=== PATIENT | female | born 2000 | race Caucasian/White ===

== ENCOUNTER 2020-06-08 02:47 | Outpatient (CLI) | payer MEDICAID, SELFPAY ==
[2020-06-08 14:08] LABS: Abs Immature Grans 0.03 10^3/uL (0.0-0.06); Absolute Basophil Count 0.07 10^3/uL (0.0-0.2); Absolute Eosinophil Count 0.11 10^3/uL (0.0-0.7); Absolute Lymphocyte Count 1.93 10^3/uL (1.2-3.4); Absolute Monocyte Count 0.71 10^3/uL (0.1-0.8); Absolute Neutrophil Count 7.84 10^3/uL (1.2-6.7); Basophils % 0.7; HCT 38.1 % (36.0-46.0); HGB 13.1 g/dL (11.2-15.7); Immature Grans % 0.3; Lymphocytes % 18.1; MCH 29.4 pg (27.0-33.0); MCHC 34.4 % (32.0-36.0); MCV 85.6 fL (80-95); MPV 10.1 fL (8.0-11.0); Monocytes % 6.6; Neutrophils % 73.3; Nucleated RBC 0 %; Platelet Count 321 10^3/uL (130-400); RBC 4.45 10^6/uL (3.93-5.22); RDW 11.6 % (11.7-14.6); RDW-SD 35.5 fL; WBC 10.69 10^3/uL (4.4-10.8)
[2020-06-08 14:59] LABS: TSH (W/Ref FT4) 0.89 uIU/mL (0.52-4.13)
[2020-06-09 09:00] LABS: Hepatitis B Surface Ag Negative (Negative)
[2020-06-09 09:36] LABS: HIV-1/2 Ag & Ab Screen Negative (Negative)
[2020-06-09 09:51] LABS: Hepatitis C Ab w Rflx HCV PCR Negative (Negative)
[2020-06-09 11:17] LABS: Varicella IgG Antibody Positive (See Note)
[2020-06-09 11:20] LABS: Rubella IgG Ab (UVM) Negative (See Note)
[2020-06-10 11:35] LABS: Syphilis Total Ab w/Reflex Nonreactive (Nonreactive)
== END 2020-06-08 02:48 | disposition home or self-care (01) ==
LOC: LBO 02:47
PROVIDERS: Visit Provider Advanced Practice Midwife
DX: Z34.91 Encounter for supervision of normal pregnancy, unspecified, first trimester (principal); Z11.4 Encounter for screening for human immunodeficiency virus [HIV]; Z11.59 Encounter for screening for other viral diseases; Z01.84 Encounter for antibody response examination; E07.89 Other specified disorders of thyroid
CPT/HCPCS: 36415; 86787; 86803; 86850; 86900; 86901; 87340; 87389; 84443; 85025; 86762; 86780

== ENCOUNTER 2020-06-08 16:56 | Outpatient (REF) | payer MEDICAID, SELFPAY ==
[2020-06-08 18:43] LABS: *AMPHETAMINES SCREEN URINE Negative (Negative); *BARBITURATES SCREEN URINE Negative (Negative); *BENZODIAZEPINES SCREEN URINE Negative (Negative); Cannabinoids THC Negative (Negative); Cocaine Screen,Urine Negative (Negative); METHADONE URINE SCREEN Negative (Negative); OPIATES URINE SCREEN Negative (Negative)
[2020-06-08 18:50] LABS: Tricyclic Antidepressants Negative (Negative)
[2020-06-12 15:48] LABS: Chlamydia Result Negative (Negative); GC Result Negative (Negative)
[2020-06-15 10:10] LABS: Buprenorphine Negative ng/mL (Cutoff: 5.0); Norbuprenorphine Negative ng/mL (Cutoff: 2.5)
== END 2020-06-08 16:57 | disposition home or self-care (01) ==
LOC: NCHCN 16:56
PROVIDERS: Visit Provider Advanced Practice Midwife
DX: Z34.91 Encounter for supervision of normal pregnancy, unspecified, first trimester (principal); Z11.3 Encounter for screening for infections with a predominantly sexual mode of transmission
CPT/HCPCS: 80307; 87491; 87591; 87086

== ENCOUNTER 2020-07-19 02:54 | Outpatient (CLI) | payer MEDICAID, SELFPAY ==
--- NOTE | 2020-07-19 08:15 | DI.US_ITS ---
EXAM: US OB 2-3 TRIMESTER CLINICAL HISTORY: 18 wk anatomy survey,Z34.90. TECHNIQUE: Transabdominal obstetrical ultrasound was performed. COMPARISON: No exams were available for comparison FINDINGS: There is a single viable intrauterine gestation with cardiac activity identified-155 bpm. Amniotic fluid: There is a normal amount of amniotic fluid. Placental location: The placenta is fundal grade 0,with no evidence of placenta previa. ANATOMY: A 3 vessel umbilical cord is seen. A four-chamber cardiac view was obtained. Right and left ventricular outflow tracts were imaged. There are no obvious abnormalities of the spinal column evident. There is no obvious abnormal ity of the anterior abdominal wall. stomach and urinary bladder are identified and there is no evidence of hydronephrosis. No abnormalities of the upper lip region are identified. No evidence of choroid plexus cysts i n the brain. Dating parameters place this at approximately 18 weeks and 4 days gestational age. BPD measures 18 weeks and 6 days HC measures 18 weeks and 6 days AC measures 18 weeks and 2 days FL measures 18 weeks and 3 days Estimated weight is 237 gm-0 pounds, 8 ounces Fetus is at the 51st percentile on the Hadlock scale. IMPRESSION:: Single viable intrauterine gestation which is approximately 18 weeks and 4 days gestati onal age, implying an MOOKIE of December 16, 2020. There are no obvious anomalies evident on today's study. The placenta is fundal with no evidence of placenta previa. There is a normal amount of amniotic fluid. DATA REPOSITORY:
== END 2020-07-19 03:14 ==
PROVIDERS: Visit Provider Advanced Practice Midwife
DX: Z34.92 Encounter for supervision of normal pregnancy, unspecified, second trimester (principal); Z3A.18 18 weeks gestation of pregnancy
CPT/HCPCS: 76805

== ENCOUNTER 2020-09-21 04:21 | Outpatient (CLI) | payer MEDICAID, SELFPAY ==
[2020-09-21 15:15] LABS: Glucose,1 Hr (Glucola) 112 mg/dL (80-140)
== END 2020-09-21 04:22 | disposition home or self-care (01) ==
LOC: LBO 04:21
PROVIDERS: Visit Provider Obstetrics & Gynecology
DX: O36.0130 Maternal care for anti-D [Rh] antibodies, third trimester, not applicable or unspecified (principal); Z3A.28 28 weeks gestation of pregnancy
CPT/HCPCS: 36415; 82950; 86850; 90384

== ENCOUNTER 2020-11-23 16:16 | Outpatient (REF) | payer MEDICAID, SELFPAY ==
[2020-11-23 19:40] LABS: *AMPHETAMINES SCREEN URINE Negative (Negative); *BARBITURATES SCREEN URINE Negative (Negative); *BENZODIAZEPINES SCREEN URINE Negative (Negative); Cannabinoids THC Negative (Negative); Cocaine Screen,Urine Negative (Negative); METHADONE URINE SCREEN Negative (Negative); OPIATES URINE SCREEN Negative (Negative)
[2020-11-23 19:43] LABS: Tricyclic Antidepressants Negative (Negative)
[2020-11-30 10:30] LABS: Buprenorphine Negative ng/mL (Cutoff: 5.0); Norbuprenorphine Negative ng/mL (Cutoff: 2.5)
== END 2020-11-23 16:17 | disposition home or self-care (01) ==
LOC: LBN 16:16
PROVIDERS: Visit Provider Obstetrics & Gynecology
DX: Z34.93 Encounter for supervision of normal pregnancy, unspecified, third trimester (principal); Z36.85 Encounter for antenatal screening for Streptococcus B; Z3A.36 36 weeks gestation of pregnancy
CPT/HCPCS: 80307; 87081

== ENCOUNTER 2020-12-18 10:52 | Outpatient (CLI) | payer MEDICAID, SELFPAY ==
[2020-12-18 13:13] VITALS: BP 124/66; PULSE 73; TEMP 36.5
--- NOTE | 2020-12-20 11:59 | W.OBNST ---
Date of service: 12/20/20 Time of Service: 12:00 NST Evaluation Reason for NST Reasons for Nonstress Test: POSTDATES Gestational Age Gestational Age in Weeks and Days: 40 Weeks and 0Days Test and Monitor Explained Test/Monitor Explained: Test Explained, Monitor Explained and Patient Verbalized Understanding Vital Signs Blood Pressure: 124/66 Pulse: 73 Temperature: 97.7 F Urine Results Urine Protein: Negative Urine Ketones: Negative Urine Glucose: Negative Urine Blood: Negative NST Information Date on Monitor: 12/18/20 Time on Monitor: 13:12 Date off Monitor: 12/18/20 Time off Monitor: 13:38 Total Time on Monitor: 26 NST Interventions: None NST Evaluation Patient States Movement: Present FHR Baseline: 140 Variability: Moderate 6-25 bpm Accelerations: 15x15 Decelerations: None NST Results: Reactive Note NST Note Note: reactive NST. NST Reviewed and Verified by: Leah Trevino
[2020-12-20 12:00] VITALS: BP 124/66; PULSE 73; TEMP 36.5
--- NOTE | 2020-12-20 13:17 | W.OBNST ---
Date of service: 12/20/20 Time of Service: 13:17 NST Evaluation Reason for NST Reasons for Nonstress Test: POSTDATES Gestational Age Gestational Age in Weeks and Days: 40 Weeks and 0Days Test and Monitor Explained Test/Monitor Explained: Test Explained, Monitor Explained and Patient Verbalized Understanding Vital Signs Blood Pressure: 124/66 Pulse: 73 Temperature: 97.7 F Urine Results Urine Protein: Negative Urine Ketones: Negative Urine Glucose: Negative Urine Blood: Negative NST Information Date on Monitor: 12/18/20 Time on Monitor: 13:12 Date off Monitor: 12/18/20 Time off Monitor: 13:38 Total Time on Monitor: 26 NST Interventions: None NST Evaluation Patient States Movement: Present FHR Baseline: 140 Variability: Moderate 6-25 bpm Accelerations: 15x15 Decelerations: None NST Results: Reactive Note NST Note Note: Category 1 NST. Reactive NST Reviewed and Verified by: Amena Rust
[2020-12-20 13:18] VITALS: BP 124/66; PULSE 73; TEMP 36.5
== END 2020-12-18 13:45 | disposition home or self-care (01) ==
LOC: BCD 10:58 → OBS 13:07
PROVIDERS: Visit Provider Obstetrics & Gynecology Gynecology
DX: O48.0 Post-term pregnancy (principal); Z3A.40 40 weeks gestation of pregnancy
CPT/HCPCS: 59025

== ENCOUNTER 2020-12-21 07:32 | Outpatient (CLI) | payer MEDICAID, SELFPAY ==
[2020-12-21 14:16] VITALS: BP 126/73; PULSE 80; TEMP 36.7
[2020-12-21 14:58] VITALS: BP 126/73; PULSE 80; TEMP 36.7
--- NOTE | 2020-12-21 14:58 | W.OBNST ---
Date of service: 12/21/20 Time of Service: 14:58 NST Evaluation Reason for NST Reasons for Nonstress Test: POSTDATES Gestational Age Gestational Age in Weeks and Days: 40 Weeks and 3Days Test and Monitor Explained Test/Monitor Explained: Test Explained, Monitor Explained and Patient Verbalized Understanding Vital Signs Blood Pressure: 126/73 Pulse: 80 Temperature: 98.1 F Urine Results Urine Protein: Positive Urine Ketones: Negative Urine Glucose: Negative Urine Blood: Negative NST Information Date on Monitor: 12/21/20 Time on Monitor: 14:16 Date off Monitor: 12/21/20 Time off Monitor: 14:44 Total Time on Monitor: 28 NST Interventions: None Contraction Frequency: none NST Evaluation Patient States Movement: Present FHR Baseline: 130 Variability: Moderate 6-25 bpm Accelerations: 15x15 Decelerations: None NST Results: Reactive Note NST Note Note: Reactive NST, category 1 strip. Cervix 2 cm 80% -2 posterior soft. Will have labor induction starting with cervical ripening on 12/22/2020. NST Reviewed and Verified by: Amena Rust
== END 2020-12-21 18:30 ==
LOC: BCD 07:33 → OBS 14:12
PROVIDERS: Visit Provider Obstetrics & Gynecology
DX: O48.0 Post-term pregnancy (principal); Z3A.40 40 weeks gestation of pregnancy
CPT/HCPCS: 59025

== ENCOUNTER 2020-12-22 19:09 | Inpatient (IN) | payer MEDICAID, SELFPAY ==
[2020-12-22 19:33] LABS: HCT 38.5 % (36.0-46.0); HGB 12.9 g/dL (11.2-15.7); MCH 29.2 pg (27.0-33.0); MCHC 33.5 % (32.0-36.0); MCV 87.1 fL (80-95); MPV 10.4 fL (8.0-11.0); Platelet Count 244 10^3/uL (130-400); RBC 4.42 10^6/uL (3.93-5.22); RDW 12.5 % (11.7-14.6); RDW-SD 40.1 fL; WBC 12.15 10^3/uL (4.4-10.8)
[2020-12-22] MEDS: miSOPROStol 50 MCG TAB 25 MCG PO (20:12)
[2020-12-22 20:14] LABS: Source Nasal/Nares
[2020-12-22 22:12] LABS: COVID-19 PCR Negative (Negative)
[2020-12-23] VITALS (15 sets, daily range): BP systolic 112–145; BP diastolic 49–78; PULSE 62–109; RESP 16–18; TEMP 36.5–36.9; O2SAT 98–99
[2020-12-23] MEDS: miSOPROStol 50 MCG TAB PO (00:54)
--- NOTE | 2020-12-23 09:33 | HPE_ITS ---
Date of service: 12/23/20 Time of Service: 09:34 Assessment and Plan Assessment and plan (1) Elective induction of labor planned: Start date: 12/23/20 Start time: 09:49 Status: Acute Assessment and plan: S/p 2 doses misoprostol. Will plan for IV access and to start pitocin. May consider Cook's catheter or AROM in the future. Discussed process with pt and . She hopes to avoid pain meds if possible. OB-HPI Labor/Delivery History of Present Illness Reason for Visit: Term Pregancy Induction of Labor for Post Dates Chief Complaint: Scheduled Induction of Labor Indication for Induction: Post D ate. MOOKIE Calculator Estimated Delivery Date Method Current WG Current Estimate 12/18/20 LMP (Certain) 40w 5d Other Estimates 12/18/20 Ultrasound #1 40w 5d History of Present Expected Delivery Route/Plan - care ater 24w FOB/ - Victor Hugo Pacheco (first child) Specific Issues/Plan 1. Rubella non immune, pt counseled, may accept pp vaccination 2. Declines genetic screening, declines AFP 3. Thyroid slightly enlarged on initial exam, TSH is nml 4. Rh neg, 09/21/20 RhoGam given. 5. US complete, placenta fundal 6. Ana Maria and her decline covid vaccine. 7. Does not want to know gender, if male will circ Review of Systems All systems reviewed & are unremarkable except as noted in HPI and below PFSH Medical History Rh negative state in antepartum period 09/21/20. Rhogam given. Family History Father Well adult Mother Well adult Maternal Grandfather Colon cancer Social History Smoking/Tobacco Use Status: Never Smoking risk assessment performed?: Yes Alcohol Intake: current Alcohol Intake frequency: a few times a month Alcohol type: wine Substance use type: does not use Household members: spouse and other Details: ChaceVictor Hugo. Number of Children: 0 Additional Social history: Pt plays organ, piano and clarinet. She and have known each other since childhood. Female Reproductive History Menstrual control method: other History History 1 Para 0 Hx # Term Pregnancies 0 Multiple births 0 Hx # Pregnancies 0 Ectopic pregnancies 0 AB induced 0 Hx Number of Living Children 0 AB spontaneous 0 Meds Allergies and Home Medications Allergies Allergy/AdvReac Type Severity Reaction Status Date / Time No Known Allergies Allergy Verified 12/07/20 13:34 Home Medications Medication Instructions Recorded Confirmed Type prenat.vits,martha,[id number] 1 tab PO DAILY tab 09/21/20 12/23/20 History Exam Physical Exam Vital signs: Temp Pulse Resp BP Pulse Ox 97.7 F 71 18 118/78 98 12/23/20 08:43 12/23/20 08:43 12/23/20 08:43 12/23/20 08:43 12/23/20 08:43 Detailed Labor and Delivery Exam Dilation: 3 Effacement (%): 80 station: -1 Cervix position: posterior Consistency: medium Gilmore Score: Cervical Points Exam 0 1 2 3 Dilation Closed 1-2cm 3-4 cm 5-6cm Effacement 0-30% 40-50% 60-70% 80% Consistency Firm Medium Soft Station -3 -2 -1,0 +1,+2 Position Posterior Mid Anterior GILMORE Score(Cervical Ripeness Score): 8 Amniotic Membrane Status: Intact HEENT Exam HEENT Exam: Normal Respiratory Exam Respiratory Exam: Normal Detailed Abdominal Exam Abdominal: Absent tenderness Comments: Gravid Detailed Extremities Exam Extremities: Absent edema Detailed Neurological Exam Neurological: Present alert, oriented X3, CN II-XII intact and normal speech Results Results Group Beta Strep: Negative Blood Type: A- Rubella Status: Nonimmune Varicella Immunity: Immune Abnormal Lab Findings: Abnormal Labs 12/22/20 19:25 WBC 12.15 H Risk Assessment Risk for Shoulder Dystocia Historical/Initial OB: NEGATIVE FOR: Pelvic Abnormality, Pre- BMI>30, Previous Shoulder Dystocia or Previous Macrosomia Date/Initial: KJ 11/23/20 Delivery Plan @ 36wks: Delivery Plan @ 40 wks: Risk for Pre-Eclampsia Yes, if one or more: NEGATIVE FOR: Hx Pre-E/Gest HTN, Chronic HTN, Multiple Gestation, Pre-gestational DM, Renal Disease, Systemic Lupus or APA Syndrome Yes, if 2 or more: POSITIVE FOR: Nulliparity; NEGATIVE FOR: Age>= 35 yrs, >10yr btwn pregnancies, BMI>30, ethinicty, Mother/Sister w/ Pre-E or Previous IUGR Risk for Post- Hemorrhage Initial: NEGATIVE FOR: Multiple Gestation, Previous PPH, Known Clotting Deficiency, Grand Multiparity or Anticoagulation Counseled re: Active Management: Yes Date/Initials: PAOLO 11/23/20 Risks Reviewed Risks Reviewed Upon Admission: Yes
[2020-12-23] MEDS: Normal Saline Flush 10 ML SYR IVP (09:55)
[2020-12-23] MEDS: Lactated Ringers 1,000 ML 125 ML IV ×2 (10:00→17:28)
[2020-12-23] MEDS: Oxytocin/Normal Saline 30 UNIT/500 ML BAG 4 UNITS IV (10:13)
[2020-12-23 10:23] LABS: HCT 38.8 % (36.0-46.0); HGB 12.8 g/dL (11.2-15.7); MPV 10.6 fL (8.0-11.0); Platelet Count 228 10^3/uL (130-400); RBC 4.41 10^6/uL (3.93-5.22); RDW 12.5 % (11.7-14.6); RDW-SD 39.9 fL; WBC 11.21 10^3/uL (4.4-10.8)
--- NOTE | 2020-12-23 15:31 | W.PM.OBNL1 ---
Date of service: 12/23/20 Time of Service: 15:31 Pelvic Exam Dilation: 5 Effacement (%): 90 station: +1 Cervix Position: mid Vaginal Exam Presentation: Cephalic Contractions Monitor Mode: External Contraction Frequency(min): q2-4 Intensity: Moderate Fetus A Monitor: Doppler Heart Rate Baseline: 145 Variability: Moderate (6-25 BPM) Categories: Category I FHR Rhythm: Regular Accelerations: Present Decelerations: Early Amniotic Membrane Status: Ruptured Assessment and Plan Assessment and plan (1) Elective induction of labor planned: Status: Acute Assessment and plan: P0@41wks for induction. Pit @12. Cat 1 FHR. Will decrease pit to 10 now. Continue to monitor. Pt coping well with pain. Objective Abnormal lab results 12/22/20 12/23/20 Range/Units 19:25 10:00 WBC 12.15 H 11.21 H (4.4-10.8) 10^3/uL Temp Pulse Resp BP Pulse Ox 97.9 F 73 16 117/66 99 12/23/20 14:27 12/23/20 14:27 12/23/20 12:34 12/23/20 14:27 12/23/20 12:34 Laboratory Results WBC 11.21 10^3/uL (4.4-10.8) H 12/23/20 10:00 RBC 4.41 10^6/uL (3.93-5.22) 12/23/20 10:00 Hgb 12.8 g/dL (11.2-15.7) 12/23/20 10:00 Hct 38.8 % (36.0-46.0) 12/23/20 10:00 MCV 88.0 fL (80-95) 12/23/20 10:00 MCH 29.0 pg (27.0-33.0) 12/23/20 10:00 MCHC 33.0 % (32.0-36.0) 12/23/20 10:00 RDW 12.5 % (11.7-14.6) 12/23/20 10:00 Plt Count 228 10^3/uL (130-400) 12/23/20 10:00 MPV 10.6 fL (8.0-11.0) 12/23/20 10:00 COVID-19 Source Nasal/Nares 12/22/20 19:56 SARS-CoV-2 (PCR) Negative (Negative) 12/22/20 19:56 Patient ABO/Rh A Negative 12/22/20 19:25 Antibody Screen NEGATIVE 12/22/20 19:25 Subjective Interval history since last seen: Feeling more uncomfortable. AROM @13:40 with clear fluid - continues to leak. Results Hemoglobin/Hematocrit: Hgb 12.8 g/dL (11.2-15.7) 12/23/20 10:00 Hct 38.8 % (36.0-46.0) 12/23/20 10:00 Abnormal Lab Findings: Abnormal Labs 12/22/20 12/23/20 19:25 10:00 WBC 12.15 H 11.21 H
--- NOTE | 2020-12-23 17:40 | W.PM.OBNL1 ---
Date of service: 12/23/20 Time of Service: 17:40 Pelvic Exam Dilation: 6 Effacement (%): 90 station: +1 Position: ITALIA Vaginal Exam Presentation: Vertex Contractions Monitor Mode: External Contraction Frequency(min): q2-3 Fetus A Monitor: External (US) Heart Rate Baseline: 130 Variability: Moderate (6-25 BPM) Categories: Category I Accelerations: 15 X 15 Decelerations: Early Assessment and Plan Assessment and plan (1) Elective induction of labor planned: Status: Acute Objective Abnormal lab results 12/22/20 12/23/20 Range/Units 19:25 10:00 WBC 12.15 H 11.21 H (4.4-10.8) 10^3/uL Temp Pulse Resp BP Pulse Ox 98.2 F 78 16 112/55 L 99 12/23/20 17:27 12/23/20 16:28 12/23/20 12:34 12/23/20 16:28 12/23/20 12:34 Laboratory Results WBC 11.21 10^3/uL (4.4-10.8) H 12/23/20 10:00 RBC 4.41 10^6/uL (3.93-5.22) 12/23/20 10:00 Hgb 12.8 g/dL (11.2-15.7) 12/23/20 10:00 Hct 38.8 % (36.0-46.0) 12/23/20 10:00 MCV 88.0 fL (80-95) 12/23/20 10:00 MCH 29.0 pg (27.0-33.0) 12/23/20 10:00 MCHC 33.0 % (32.0-36.0) 12/23/20 10:00 RDW 12.5 % (11.7-14.6) 12/23/20 10:00 Plt Count 228 10^3/uL (130-400) 12/23/20 10:00 MPV 10.6 fL (8.0-11.0) 12/23/20 10:00 COVID-19 Source Nasal/Nares 12/22/20 19:56 SARS-CoV-2 (PCR) Negative (Negative) 12/22/20 19:56 Patient ABO/Rh A Negative 12/22/20 19:25 Antibody Screen NEGATIVE 12/22/20 19:25 Subjective Patient Reports: No new Complaints Interval history since last seen: Coping well Results Hemoglobin/Hematocrit: Hgb 12.8 g/dL (11.2-15.7) 12/23/20 10:00 Hct 38.8 % (36.0-46.0) 12/23/20 10:00 Abnormal Lab Findings: Abnormal Labs 12/22/20 12/23/20 19:25 10:00 WBC 12.15 H 11.21 H
--- NOTE | 2020-12-23 23:38 | W.OBDELIVERY ---
Date of service: 12/23/20 Time of Service: 23:40 OB Labor/ Delivery Information Baby A Delivery Delivery Method: Spontaneaous Presentation: Cephalic Cephalic Position: Vertex Vertex Position: Left Occipital Posterior Cord Description-Baby A: 3 Vessels Amniotic Fluid: Clear Estimated Blood Loss: 250ml Delivery Outcome: Liveborn Providers Doctor: Jenna Sawyer Nurse: Sara Allen Nurse: Selin Cheng Other: Haily Quintero Labor/Delivery Information Number of Babies in Womb: 1 Steroids Given: None Reason Steroids Not Administered: N/A Group Beta Strep: Negative Antibiotics Administered: No Rubella Status: Nonimmune Blood Type: A- Varicella Immunity: Immune Maternal Complications: None Shoulder Dystocia: No Note: The pt was found to be fully dilated. She pushed 65min to deliver the infant's head in FABBY position followed by the shoulders with compound left hand and then the rest of the body. The baby was placed on mom's abdomen. After >1min the cord was clamped x2 and cut. Cord blood collected. The placenta delivered with gentle cord traction and fundal massage and appeared intact. A 1st degree right laceration just inside the perineum was repaired with 3-0 vicryl after lidocaine injection. Mom and baby stable at time of note. Stages of Labor Onset of Labor Date: 12/23/20 Onset of Labor Time: 10:00 Complete Dilatation Date: 12/23/20 Complete Dilatation Time: 21:23 Labor - Stage 1 Duration: 0 minutes ROM Baby A: 12/23/20 ROM Baby A: 13:40 ROM Total Time- Baby A: [id number] Infant Delivery Date-Baby A: 12/23/20 Delivery Time-Baby A: 22:28 Labor Stage 2 Duration: 1 hours and 5 minutes Placenta Delivery Date-Baby A: 12/23/20 Placenta Delivery Time-Baby A: 22:33 Labor-Stage 3 Duration: 5 minutes Total Length of Labor-Baby A: 12 hours and 28 minutes Placenta Cultured: No Placenta Status: Delivered Baby A Gender: Female Gestational Status: Term (39-41.6 wks) Gestational Age in Weeks/Days: 40 Weeks and 5 Days Score-1 Minute Interval(Baby A) Heart Rate-1 minute: 100 BPM or Greater Respiratory Effort- 1 minute: Slow Respiration/Weak Cry Muscle Tone-1 minute: Minimal Flexion/Extension Reflex Response-1 minute: Prompt Response Color-1 minute: Bluish Hands or Feet Total Score-1 minute: 7 Score-5 Minute Interval(Baby A) Heart Rate- 5 minute: 100 BPM or Greater Respiratory Effort-5 minute: Spontaneous/Strong Cry Muscle Tone-5 minute: Active Movement Reflex Response-5 minute: Prompt Response Color-5 minute: Bluish Hands or Feet Total Score- 5 minute: 9 Interventions Augmentation , Pitocin rate (mU/min): 10/ Repair of Laceration
[2020-12-24 00:08] VITALS: BP 134/60; PULSE 82
[2020-12-24 00:39] VITALS: BP 137/62; PULSE 93
[2020-12-24] MEDS: Lidocaine 1% Multi-Dose 20 ML VIAL IJ (01:30)
[2020-12-24 02:52] VITALS: BP 126/78; PULSE 72
[2020-12-24 08:30] VITALS: BP 112/59; PULSE 83; RESP 16; TEMP 36.7
--- NOTE | 2020-12-24 08:35 | W.PM.OBPNV1 ---
Date of service: 12/24/20 Time of Service: 08:35 Assessment and Plan Assessment and plan (1) care following vaginal delivery: Status: Acute Assessment and plan: P1 PPD#1 s/p NVD, doing well. Delivered late last evening so baby has not had a good feed yet but seems to be latching ok. Routine pp care. Likely d/c tomorrow. Subjective Subjective Patient comments: No complaints, Pain well controlled and Tolerating diet [place] baby status: Doing well feeding status: Exclusively breast feeding (Just starting to latch well) Exam Physical Exam Vital signs: Temp Pulse Resp BP Pulse Ox 97.9 F 72 16 126/78 99 12/23/20 18:28 12/24/20 02:52 12/23/20 12:34 12/24/20 02:52 12/23/20 21:28 Constitutional Constitutional: no acute distress and cooperative Detailed HEENT Exam Head: Present normocephalic and atraumatic Respiratory Exam Respiratory Exam: Normal Fundal Exam Fundus: Below Umbilicus and Firm Extremities Exam Extremity Exam: negative Calf Tenderness and Edema Detailed Neurological Exam Neurological: Present alert, oriented X3 and CN II-XII intact Results Hemoglobin/Hematocrit: Hgb 12.8 g/dL (11.2-15.7) 12/23/20 10:00 Hct 38.8 % (36.0-46.0) 12/23/20 10:00 Abnormal Lab Findings: Abnormal Labs 12/22/20 12/23/20 19:25 10:00 WBC 12.15 H 11.21 H
[2020-12-24] MEDS: Ibuprofen 600 MG TAB PO ×2 (08:54→18:31)
[2020-12-24] MEDS: Docusate Sodium 100 MG CAP PO ×2 (08:54→18:31)
[2020-12-24] MEDS: Acetaminophen 325 MG TAB 650 MG PO ×2 (08:55→18:31)
[2020-12-24] MEDS: Measles, Mumps, & Rubella Vaccine 0.5 ML VIAL SC (11:51)
[2020-12-24 20:00] VITALS: BP 118/63; PULSE 72; RESP 18; TEMP 36.7; O2SAT 99
[2020-12-25] MEDS: Ibuprofen 600 MG TAB PO ×2 (02:24→09:02)
[2020-12-25] MEDS: Acetaminophen 325 MG TAB 650 MG PO ×2 (02:25→09:01)
[2020-12-25 07:30] VITALS: BP 118/69; PULSE 77; RESP 14; TEMP 36.6
--- NOTE | 2020-12-25 08:21 | W.PM.OBDISCH ---
DS: Diagnosis Discharge Diagnosis (1) care following vaginal delivery: Status: Acute (2) (spontaneous vaginal delivery): Status: Acute Discharge Plan Disposition Patient Disposition: HOME Condition: Improving Discharge Details Reason For Visit: Term Pregancy Induction of Labor for Post Dates Admit Date/Time: 12/22/20 19:09 Admit Provider: Jenna Sawyer Attending Provider: Jenna Sawyer Hospital Course Hospital Course: Is a 20-year-old G1, P1 female who underwent an induction of labor for postdates at 40 W5D EGA. Spontaneous rupture of membranes over an intact perineum of a viable female infant who will be named Yamila. She was discharged home on day 2 successfully breast-feeding. Discharge medication will include ibuprofen 600 mg every 6 hours. She is rubella nonimmune and Rh- plan is to have both RhoGam and MMR administered at the time of discharge. [facility]. Rice in 2 weeks. control was not discussed. Home Meds and New Rx's Prescriptions: No Action prenat.vits,martha,[id number] Tablet 1 tab PO DAILY RF: 0 Discharge Instructions Stand Alone Forms: BC Instructions, BC Post Vaginal Deliver Activity:: Activity as Tolerated Equipment/Supplies:: No Equipment Needed Diet:: As Tolerated Discharge Orders Discharge Orders: Discharge Order (Routine); Ordered 12/25/20 Ordered By: Leah Trevino OB:DS Summary Summary Vaginal Delivery Method: Spontaneaous Episiotomy Description: None Laceration Description: Perineal Laceration Extension: First Degree Contraception Discussed Contraception Discussed: No, Infant Gender-Baby A: Female weight: 9 lb 0.623 oz Status at Discharge Functional status at discharge: independent ambulation Overall status at discharge: patient is back to baseline Mental Status: mental status grossly normal Speech and Movement: speech and movement normal Mood: congruent mood Affect: normal affect Exam Physical Exam Vital signs: Temp Pulse Resp BP Pulse Ox 98.1 F 72 18 118/63 99 12/24/20 20:00 12/24/20 20:00 12/24/20 20:00 12/24/20 20:00 12/24/20 20:00 Vital Signs Reviewed: Yes Narrative: day 2 over intact perineum. Breast-feeding. Desires discharge Constitutional Constitutional: no acute distress Neck Exam Neck Exam: Normal Respiratory Exam Respiratory Exam: Normal Cardiovascular Exam Cardiovascular Exam: Normal Abdominal Exam Abdomen: Other (Firm, nontender) Fundal Exam Fundus: Below Umbilicus Rectal Exam Rectal Exam: Not Done Exam Perineum: Normal External: Present normal urethra appearance and discharge (No evidence of erythema ecchymosis.) Comments: Labial sutures not visualized Extremities Exam Extremity Exam: Normal and Edema (Patient says she has had months of +1 lower extremity edema) Back/Spine/Pelvis Exam Back Exam: Abnormal Skin Exam Skin Exam: Normal Neurological Exam Neurological Exam: Normal Psychiatric Exam Psychiatric Exam: Normal [facility] Medical History (Updated 12/25/20 @ 08:33 by Leah Trevino MD) Rh negative state in antepartum period 09/21/20. Rhogam given. Family History Father Well adult Mother Well adult Maternal Grandfather Colon cancer Social History Smoking/Tobacco Use Status: Never Smoking risk assessment performed?: Yes Alcohol Intake: current Alcohol Intake frequency: a few times a month Alcohol type: wine Substance use type: does not use Household members: spouse and other Details: H-Victor Hugo. Number of Children: 0 Additional Social history: Pt plays organ, piano and clarinet. She and have known each other since childhood. Female Reproductive History Menstrual control method: other History History 1 Para 1 Hx # Term Pregnancies 1 Multiple births 0 Hx # Pregnancies 0 Ectopic pregnancies 0 AB induced 0 Hx Number of Living Children 1 AB spontaneous 0 DS: Data Vitals/I&O Vitals and I&O: Vital Signs Temperature 98.1 F 12/24/20 20:00 Pulse 72 12/24/20 20:00 Pulse Rhythm Regular 12/24/20 20:00 Respiratory Rate 18 12/24/20 20:00 Respiratory Depth Normal 12/24/20 08:57 Blood Pressure 118/63 12/24/20 20:00 Blood Pressure Mean 81 12/24/20 20:00 Pulse Oximetry 99 12/24/20 20:00 Pain Level 3 12/25/20 02:25 Comment 12/24/20 20:00 Intake & Output 12/24/20 12/24/20 12/25/20 11:59 23:59 11:59 Intake Total 1000 / 1000 Output Total 2400 / 2400 Balance -2400 / -1400 1000 / -1400 Intake: IV 1000 / 1000 Output: Urine 2400 / 2400 Other: Urine Color Yellow Dark Red
== END 2020-12-25 11:00 | disposition home or self-care (01) | DRG 806 ==
PROVIDERS: Admitting Provider Obstetrics & Gynecology; Visit Provider Obstetrics & Gynecology
DX: O48.0 Post-term pregnancy (principal); O36.0930 Maternal care for other rhesus isoimmunization, third trimester, not applicable or unspecified; Z37.0 Single live birth; Z3A.40 40 weeks gestation of pregnancy; O70.0 First degree perineal laceration during delivery; O32.6XX0 Maternal care for compound presentation, not applicable or unspecified
CPT/HCPCS: 36415; 85027; 86850; 86900; 86901; 87635; J3490

== ENCOUNTER 2021-11-22 04:49 | Outpatient (CLI) | payer MEDICAID, SELFPAY ==
[2021-11-22 14:49] LABS: Abs Immature Grans 0.03 10^3/uL (0.0-0.06); Absolute Basophil Count 0.05 10^3/uL (0.0-0.2); Absolute Lymphocyte Count 1.92 10^3/uL (1.2-3.4); Absolute Monocyte Count 0.55 10^3/uL (0.1-0.8); Absolute Neutrophil Count 6.66 10^3/uL (1.2-6.7); Basophils % 0.5; Eosinophils % 1.1; HCT 37.4 % (36.0-46.0); HGB 12.6 g/dL (11.2-15.7); Immature Grans % 0.3; Lymphocytes % 20.6; MCH 28.3 pg (27.0-33.0); MCHC 33.7 % (32.0-36.0); MCV 84 fL (80-95); MPV 10.2 fL (8.0-11.0); Monocytes % 5.9; Neutrophils % 71.6; Platelet Count 259 10^3/uL (130-400); RBC 4.45 10^6/uL (3.93-5.22); RDW 11.9 % (11.7-14.6); RDW-SD 36.1 fL; WBC 9.31 10^3/uL (4.4-10.8)
[2021-11-22 15:05] LABS: Glucose,1 Hr (Glucola) 96 mg/dL (80-140)
[2021-11-22 15:19] LABS: TSH (W/Ref FT4) 0.73 uIU/mL (0.36-3.74)
[2021-11-25 09:29] LABS: HIV-1/2 Ag & Ab Screen Negative (Negative)
[2021-11-26 09:25] LABS: Hepatitis C Ab w Rflx HCV PCR Negative (Negative)
[2021-11-26 09:33] LABS: Hepatitis B Surface Ag Negative (Negative)
[2021-11-26 10:48] LABS: Varicella IgG Antibody Positive (See Note)
[2021-11-26 10:50] LABS: Rubella IgG Ab (UVM) Positive (See Note)
[2021-11-26 15:29] LABS: Syphilis IgG w/Reflex Nonreactive (Nonreactive)
== END 2021-11-22 04:50 | disposition home or self-care (01) ==
LOC: LBO 04:49
PROVIDERS: Visit Provider Advanced Practice Midwife
DX: Z34.91 Encounter for supervision of normal pregnancy, unspecified, first trimester
CPT/HCPCS: 36415; 82950; 86787; 86803; 86850; 86900; 86901; 87340; 87389; 84443; 85025; 86762; 86780; 87086

== ENCOUNTER 2021-12-20 17:46 | Outpatient (REF) | payer MEDICAID, SELFPAY ==
[2021-12-20 19:11] LABS: *AMPHETAMINES SCREEN URINE Negative (Negative); *BARBITURATES SCREEN URINE Negative (Negative); *BENZODIAZEPINES SCREEN URINE Negative (Negative); Cannabinoids THC Negative (Negative); Cocaine Screen,Urine Negative (Negative); METHADONE URINE SCREEN Negative (Negative); OPIATES URINE SCREEN Negative (Negative)
[2021-12-20 19:16] LABS: Tricyclic Antidepressants Negative (Negative)
[2021-12-26 12:28] LABS: Buprenorphine Negative ng/mL (Cutoff: 5.0); Norbuprenorphine Negative ng/mL (Cutoff: 2.5)
== END 2021-12-20 17:47 | disposition home or self-care (01) ==
LOC: LBN 17:46
PROVIDERS: Visit Provider Advanced Practice Midwife
DX: Z34.92 Encounter for supervision of normal pregnancy, unspecified, second trimester (principal); Z3A.16 16 weeks gestation of pregnancy
CPT/HCPCS: 80307

== ENCOUNTER → 2022-01-03 01:43 | Outpatient (CLI) | payer MEDICAID, SELFPAY ==
--- NOTE | 2022-01-03 07:15 | DI.US_ITS ---
Exam(s) US OB 2-3 TRIMESTER EXAM: US OB 2-3 TRIMESTER CLINICAL HISTORY: 18 wk anatomy survey Z34.90 SUPERVISION NORMAL . TECHNIQUE: Transabdominal obstetrical ultrasound performed. COMPARISON: US US OB 2-3 TRIMESTER from 07/19/2020 FINDINGS: Number of fetuses: 1 position: CEPHALIC heart rate: 150bpm Placental location: There is a grade 1 anterior placenta. No evidence of previa. Cervical length: 5.32 cm. Amniotic fluid index: 12.07cm Amount of fluid is within normal limits. ANATOMICAL SURVEY: Within normal limits. BIOMETRIC DATA: BPD: 3.84cm,17weeks 5days HC: 14.86cm,18weeks AC: 12.9cm,18weeks 3days FL: 2.62cm,18weeks Cisterna magna: 3.5mm Cerebellum: 1.78cm EFW: 227.67g, 0.5lb, 30.7% Composite Age: 18weeks MOOKIE:06/06/2022 Heart Rate:150bpm IMPRESSION: 1. Single live intrauterine gestation as above. 2. Normal anatomic survey. DATA REPOSITORY:
== END ==
PROVIDERS: Visit Provider Advanced Practice Midwife
DX: Z34.92 Encounter for supervision of normal pregnancy, unspecified, second trimester (principal)
CPT/HCPCS: 76805

== ENCOUNTER 2022-03-12 02:05 | Outpatient (CLI) | payer MEDICAID, SELFPAY ==
[2022-03-12 15:03] LABS: Abs Immature Grans 0.05 10^3/uL (0.0-0.06); Absolute Basophil Count 0.06 10^3/uL (0.0-0.2); Absolute Eosinophil Count 0.14 10^3/uL (0.0-0.7); Absolute Lymphocyte Count 1.92 10^3/uL (1.2-3.4); Absolute Monocyte Count 0.59 10^3/uL (0.1-0.8); Basophils % 0.6; Eosinophils % 1.4; HCT 35.9 % (36.0-46.0); HGB 12.1 g/dL (11.2-15.7); Immature Grans % 0.5; Lymphocytes % 18.9; MCH 29.1 pg (27.0-33.0); MCHC 33.7 % (32.0-36.0); MCV 86 fL (80-95); Monocytes % 5.8; Neutrophils % 72.8; Platelet Count 233 10^3/uL (130-400); RBC 4.16 10^6/uL (3.93-5.22); RDW 12.1 % (11.7-14.6); RDW-SD 38.5 fL; WBC 10.16 10^3/uL (4.4-10.8)
[2022-03-12 16:08] LABS: Glucose,1 Hr (Glucola) 105 mg/dL (80-140)
== END 2022-03-12 02:06 | disposition home or self-care (01) ==
LOC: LBO 02:05
PROVIDERS: Visit Provider Obstetrics & Gynecology
DX: O26.893 Other specified pregnancy related conditions, third trimester; Z67.91 Unspecified blood type, Rh negative
CPT/HCPCS: 36415; 82950; 86850; 90384; 85025

== ENCOUNTER 2022-05-13 16:38 | Outpatient (REF) | payer MEDICAID, SELFPAY ==
[2022-05-13 12:59] LABS: *AMPHETAMINES SCREEN URINE Negative (Negative); *BARBITURATES SCREEN URINE Negative (Negative); *BENZODIAZEPINES SCREEN URINE Negative (Negative); Cannabinoids THC Negative (Negative); Cocaine Screen,Urine Negative (Negative); METHADONE URINE SCREEN Negative (Negative); OPIATES URINE SCREEN Negative (Negative)
[2022-05-13 14:04] LABS: Tricyclic Antidepressants Negative (Negative)
[2022-05-21 19:15] LABS: Buprenorphine Negative ng/mL (Cutoff: 5.0); Norbuprenorphine Negative ng/mL (Cutoff: 2.5)
== END 2022-05-13 16:39 | disposition home or self-care (01) ==
LOC: LBN 16:38
PROVIDERS: Visit Provider Obstetrics & Gynecology
DX: Z34.93 Encounter for supervision of normal pregnancy, unspecified, third trimester (principal); Z36.85 Encounter for antenatal screening for Streptococcus B; Z3A.37 37 weeks gestation of pregnancy
CPT/HCPCS: 80307; 80348; 87081

== ENCOUNTER 2022-06-07 09:15 | Inpatient (IN) | payer MEDICAID, SELFPAY ==
[2022-06-07] VITALS (202 sets, daily range): BP systolic 112–144; BP diastolic 56–86; PULSE 0–142; RESP 16; TEMP 36.5–36.6; BMI 31.0
--- NOTE | 2022-06-07 09:33 | W.PM.OBHPL1 ---
Date of service: 06/07/22 Time of Service: 09:33 Assessment and Plan Assessment and plan (1) Rh negative state in antepartum period: Status: Acute (2) Term : Status: Acute Assessment and plan: Patient has agreed to a oxytocin induction of labor for postdates . OB-HPI Labor/Delivery History of Present Illness Reason for Visit: IOL Chief Complaint: Other (Elective induction at 40 W4D EGA). MOOKIE Calculator Estimated Delivery Date Method Current WG Current Estimate 06/03/22 LMP (Certain) 40w 4d Other Estimates 06/06/22 Ultrasound #1 40w 1d History of Present Expected Delivery Route/Plan ALFONZO - FOMiranda/ - Chris Pacheco (2nd child together) Specific Issues/Plan 1. Declines CF/SMA and cfDNA screening 2. Close pregnancies; conception @ 8 mo's 3. Hx macrosomia, early glucola=96. Repeat 105 4. Unvaccinated for COVID, no hx of confirmed COVID illness 5. Rh neg - antepartum rhogam Informed Consent Informed Consent: Induction of Labor Review of Systems All systems reviewed & are unremarkable except as noted in HPI and below Constitutional Constitutional: Reports other (Recently recovered from flu symptoms) Cardiovascular Cardiovascular: Reports system reviewed and no additional complaints, except as documented Respiratory Respiratory: Reports system reviewed and no additional complaints, except as documented Gastrointestinal Comments: Patient was unable to present to per center secondary to marbella the flu Genitourinary Comments: Good movement, no rupture membranes, no vaginal bleeding. Musculoskeletal Musculoskeletal: Reports system reviewed and no additional complaints, except as documented Psychiatric Psychiatric: Reports system reviewed and no additional complaints, except as documented PFSH All Active Problems (Updated 06/07/22 @ 09:36 by Leah Trevino MD) Term (Acute) (Acute) Rh negative state in antepartum period (Acute) 09/21/20. Rhogam given. Medical History (Updated 06/07/22 @ 09:36 by Leah Trevino MD) care following vaginal delivery (spontaneous vaginal delivery) 12/23/2020. 40 W5D JACOBY Driscoll Family History Father Well adult Mother Well adult Maternal Grandfather Colon cancer Social History Smoking/Tobacco Use Status: Never Smoking risk assessment performed?: Yes Alcohol Intake: current Alcohol Intake frequency: a few times a month Alcohol type: wine Substance use type: does not use Household members: spouse and other Details: Joel. Number of Children: 0 Do you feel safe at home: Yes Do you feel safe in your relationship?: Yes Additional Social history: Pt plays organ, piano and clarinet. She and have known each other since childhood. Female Reproductive History Menstrual control method: other History History 2 Para 1 Hx # Term Pregnancies 1 Multiple births 0 Hx # Pregnancies 0 Ectopic pregnancies 0 AB induced 0 Hx Number of Living Children 1 AB spontaneous 0 Past Pregnancies Del. Date GA/Weeks # Preg Succ Route Wgt Sex Labor Lgth Anesthesia Location Prov Complic 12/23/20 41 No Yes vaginal 9 lb 1 oz Female 12hrs [facility], Dr. Sawyer Delivery Date: 12/23/20 Last Updated by: Mary Brunson Post-date IOL, no meds for labor, nml , Yamila Meds Allergies and Home Medications Allergies Allergy/AdvReac Type Severity Reaction Status Date / Time No Known Allergies Allergy Verified 05/22/22 10:03 Home Medications Medication Instructions Recorded Confirmed Type prenat.vits,martha,[id number]-[id number]-[id number] 1 tab PO DAILY 09/21/20 05/29/22 History famotidine 10 mg tablet (Pepcid AC) 10 mg PO DAILY 04/25/22 05/29/22 History Exam Physical Exam Vital Signs Reviewed: Yes Constitutional Constitutional: no acute distress Detailed Labor and Delivery Exam Dilation: 3 Effacement (%): 50 station: -1 Position: OA Cervix position: mid Consistency: soft Gilmore Score: Cervical Points Exam 0 1 2 3 Dilation Closed 1-2cm 3-4 cm 5-6cm Effacement 0-30% 40-50% 60-70% 80% Consistency Firm Medium Soft Station -3 -2 -1,0 +1,+2 Position Posterior Mid Anterior GILMORE Score(Cervical Ripeness Score): 5 Amniotic Membrane Status: Intact Contraction Frequency(min): irreg Contraction Intensity: Mild Fetus A Heart Rate Baseline: 150 Monitor Accelerations: 15 X 15 Monitor Decelerations: None Variability: Moderate (6-25 BPM) Presentation: Cephalic Categories: Category I Est. Weight: 7 lb 14.986 oz HEENT Exam HEENT Exam: Normal Neck Exam Neck Exam: Normal Chest/Brest/Axilla Exam Chest Exam: Normal Breast Exam Breast Exam: Normal Respiratory Exam Respiratory Exam: Normal Cardiovascular Exam Cardiovascular Exam: Normal Abdominal Exam Abdominal Exam: Normal Rectal Exam Rectal Exam: Not Done Exam Exam: Normal Extremities Exam Extremities Exam: Normal Back/Spine/Pelvis Exam Back Exam: Normal Pelvis Adequate: Yes Skin Exam Skin Exam: Normal Neurological Exam Neurological Exam: Normal Psychiatric Exam Psychiatric Exam: Normal Results Results Group Beta Strep: Negative Blood Type: A- Rubella Status: Immune Varicella Immunity: Immune Additional Findings Results: Normal H&H Risk Assessment Risk for Shoulder Dystocia Counseling: proven to 9lb 1 oz Risk for Pre-Eclampsia Date Initiated/Initials: not indicated, jk Yes, if one or more: NEGATIVE FOR: Hx Pre-E/Gest HTN, Chronic HTN, Multiple Gestation, Pre-gestational DM, Renal Disease, Systemic Lupus or APA Syndrome Yes, if 2 or more: NEGATIVE FOR: Nulliparity, Age>= 35 yrs, >10yr btwn pregnancies, BMI>30, ethinicty, Mother/Sister w/ Pre-E or Previous IUGR Risk for Post- Hemorrhage Initial: NEGATIVE FOR: Multiple Gestation, Previous PPH, Known Clotting Deficiency, Grand Multiparity or Anticoagulation Risks Reviewed Risks Reviewed Upon Admission: Yes
[2022-06-07 10:02] LABS: HCT 35.8 % (36.0-46.0); HGB 12.3 g/dL (11.2-15.7); MCHC 34.4 % (32.0-36.0); MCV 84 fL (80-95); MPV 9.7 fL (8.0-11.0); Platelet Count 223 10^3/uL (130-400); RBC 4.24 10^6/uL (3.93-5.22); RDW 12.7 % (11.7-14.6); RDW-SD 38.6 fL; WBC 8.07 10^3/uL (4.4-10.8)
[2022-06-07] MEDS: Lactated Ringers 1,000 ML 125 ML IV ×2 (10:52→18:13)
[2022-06-07] MEDS: Oxytocin/Normal Saline 30 UNIT/500 ML BAG 2 UNITS IV (10:52)
--- NOTE | 2022-06-07 14:33 | PGE_ITS ---
Date of service: 06/07/22 Time of Service: 14:33 Informed Consent Informed Consent: Induction of Labor and Risk,Benefits,Alternatives Discussed (Pt is interested in oxytocin for IOL. I explained that her cervix is favorable- no need for ripening.) Contractions Contraction Frequency(min): Q3-5 Contraction Duration(sec): 50 Intensity: Mild/Moderate (per pt report) Fetus A Monitor: External (US) Heart Rate Baseline: 135 Variability: Moderate (6-25 BPM) Categories: Category I FHR Rhythm: Regular Characteristics: Normal Accelerations: 15 X 15 Decelerations: None Amniotic Membrane Status: Intact Assessment and Plan Assessment and plan (1) Term : Status: Acute Assessment and plan: Pt receiving Oxytocin infusion for labor induction. Becoming uncomfortable with contractions. No immediate plans for labor analgesia at this time. Continue present management. Objective Abnormal lab results 06/07/22 Range/Units 09:54 Hct 35.8 L (36.0-46.0) % Temp Pulse Resp BP 97.7 F 78 16 130/65 06/07/22 13:03 06/07/22 14:32 06/07/22 09:22 06/07/22 13:03 Laboratory Results WBC 8.07 10^3/uL (4.4-10.8) 06/07/22 09:54 RBC 4.24 10^6/uL (3.93-5.22) 06/07/22 09:54 Hgb 12.3 g/dL (11.2-15.7) 06/07/22 09:54 Hct 35.8 % (36.0-46.0) L 06/07/22 09:54 MCV 84 fL (80-95) 06/07/22 09:54 MCH 29.0 pg (27.0-33.0) 06/07/22 09:54 MCHC 34.4 % (32.0-36.0) 06/07/22 09:54 RDW 12.7 % (11.7-14.6) 06/07/22 09:54 Plt Count 223 10^3/uL (130-400) 06/07/22 09:54 MPV 9.7 fL (8.0-11.0) 06/07/22 09:54 Patient ABO/Rh A Negative 06/07/22 09:54 Antibody Screen NEGATIVE 06/07/22 09:54 Vital Signs Reviewed: Yes Objective Narrative Objective Narrative: tolerating contractions well. more uncomfortable. Interventions Induction Indication: Post Date, Type of Induction: Pitocin rate at(mU/min): 10, Results Hemoglobin/Hematocrit: Hgb 12.3 g/dL (11.2-15.7) 06/07/22 09:54 Hct 35.8 % (36.0-46.0) L 06/07/22 09:54 Abnormal Lab Findings: Abnormal Labs 06/07/22 09:54 Hct 35.8 L
[2022-06-07 17:34] LABS: Source Nasal/Nares
--- NOTE | 2022-06-07 17:58 | PGE_ITS ---
Date of service: 06/07/22 Time of Service: 17:58 Informed Consent Informed Consent: Induction of Labor and Risk,Benefits,Alternatives Discussed (Pt is interested in oxytocin for IOL. I explained that her cervix is favorable- no need for ripening.) Pelvic Exam Dilation: 4.5 Effacement (%): 75 station: -1 Position: OA Cervix Position: mid Consistency: soft Vaginal Exam Presentation: Cephalic Contractions Monitor Mode: External Contraction Frequency(min): 3-4min Contraction Duration(sec): 50 Intensity: Mild/Moderate Fetus A Monitor: External (US) Heart Rate Baseline: 150 Presentation: Cephalic Variability: Moderate (6-25 BPM) Categories: Category I FHR Rhythm: Regular Characteristics: Normal Accelerations: 15 X 15 Decelerations: None Assessment and Plan Assessment and plan (1) Term : Status: Acute Assessment and plan: Patient has made cervical change. Oxytocin currently at 12 milliunits/min. Artificial rupture membranes performed with clear amniotic fluid returned. We will continue current therapy. Patient is agreeable to the plan. We briefly discussed labor analgesia I recommended nitrous oxide. Objective Abnormal lab results 06/07/22 Range/Units 09:54 Hct 35.8 L (36.0-46.0) % Temp Pulse Resp BP 97.9 F 95 H 16 132/73 06/07/22 17:00 06/07/22 17:56 06/07/22 09:22 06/07/22 17:01 Laboratory Results WBC 8.07 10^3/uL (4.4-10.8) 06/07/22 09:54 RBC 4.24 10^6/uL (3.93-5.22) 06/07/22 09:54 Hgb 12.3 g/dL (11.2-15.7) 06/07/22 09:54 Hct 35.8 % (36.0-46.0) L 06/07/22 09:54 MCV 84 fL (80-95) 06/07/22 09:54 MCH 29.0 pg (27.0-33.0) 06/07/22 09:54 MCHC 34.4 % (32.0-36.0) 06/07/22 09:54 RDW 12.7 % (11.7-14.6) 06/07/22 09:54 Plt Count 223 10^3/uL (130-400) 06/07/22 09:54 MPV 9.7 fL (8.0-11.0) 06/07/22 09:54 COVID-19 Source Nasal/Nares 06/07/22 16:43 Patient ABO/Rh A Negative 06/07/22 09:54 Antibody Screen NEGATIVE 06/07/22 09:54 Vital Signs Reviewed: Yes Objective Narrative Objective Narrative: Artificial rupture membranes performed with clear amniotic fluid returned. Patient tolerated the procedure well. Subjective Interval history since last seen: Patient requests cervical exam to assess labor progress. Results Hemoglobin/Hematocrit: Hgb 12.3 g/dL (11.2-15.7) 06/07/22 09:54 Hct 35.8 % (36.0-46.0) L 06/07/22 09:54 Abnormal Lab Findings: Abnormal Labs 06/07/22 09:54 Hct 35.8 L
[2022-06-07 18:10] LABS: COVID-19 PCR Negative (Negative)
--- NOTE | 2022-06-07 20:07 | PGE_ITS ---
Date of service: 06/07/22 Time of Service: 20:07 Informed Consent Informed Consent: Induction of Labor and Risk,Benefits,Alternatives Discussed (Pt is interested in oxytocin for IOL. I explained that her cervix is favorable- no need for ripening.) Pelvic Exam Dilation: 5 Effacement (%): 80 station: 0 Position: OA Cervix Position: mid Consistency: soft Vaginal Exam Presentation: Cephalic Contractions Monitor Mode: External Contraction Frequency(min): 3-4 Contraction Duration(sec): 40-50 Intensity: Moderate Fetus A Monitor: External (US) Heart Rate Baseline: 145 Presentation: Cephalic Variability: Moderate (6-25 BPM) Categories: Category I FHR Rhythm: Regular Characteristics: Normal Accelerations: 15 X 15 Decelerations: None Assessment and Plan Assessment and plan (1) Term : Status: Acute Assessment and plan: feeling more uncomfortable. Oxytocin 12mu/min. using Nitrous Oxide for labor analgesia. Plan continue current management. Objective Abnormal lab results 06/07/22 Range/Units 09:54 Hct 35.8 L (36.0-46.0) % Temp Pulse Resp BP 97.9 F 84 16 129/60 06/07/22 18:10 06/07/22 20:04 06/07/22 09:22 06/07/22 18:12 Laboratory Results WBC 8.07 10^3/uL (4.4-10.8) 06/07/22 09:54 RBC 4.24 10^6/uL (3.93-5.22) 06/07/22 09:54 Hgb 12.3 g/dL (11.2-15.7) 06/07/22 09:54 Hct 35.8 % (36.0-46.0) L 06/07/22 09:54 MCV 84 fL (80-95) 06/07/22 09:54 MCH 29.0 pg (27.0-33.0) 06/07/22 09:54 MCHC 34.4 % (32.0-36.0) 06/07/22 09:54 RDW 12.7 % (11.7-14.6) 06/07/22 09:54 Plt Count 223 10^3/uL (130-400) 06/07/22 09:54 MPV 9.7 fL (8.0-11.0) 06/07/22 09:54 COVID-19 Source Nasal/Nares 06/07/22 16:43 SARS-CoV-2 (PCR) Negative (Negative) 06/07/22 16:43 Patient ABO/Rh A Negative 06/07/22 09:54 Antibody Screen NEGATIVE 06/07/22 09:54 Vital Signs Reviewed: Yes Subjective Interval history since last seen: feeling more uncomfortable. requesting to use nitrous. Interventions Pain Management Interventions: Nitrous Oxide (pt using during contractions. more comfortable during contractions) , well tolerated by pt. ./ Induction Indication: Post Date, Type of Induction: Pitocin, Results Hemoglobin/Hematocrit: Hgb 12.3 g/dL (11.2-15.7) 06/07/22 09:54 Hct 35.8 % (36.0-46.0) L 06/07/22 09:54 Abnormal Lab Findings: Abnormal Labs 06/07/22 09:54 Hct 35.8 L
[2022-06-07] MEDS: Bupivacaine 0.25% Pres-Free 10 ML VIAL EP (20:20)
--- NOTE | 2022-06-07 21:05 | PGE_ITS ---
Date of service: 06/07/22 Time of Service: 21:05 Informed Consent Informed Consent: Induction of Labor and Risk,Benefits,Alternatives Discussed (Pt is interested in oxytocin for IOL. I explained that her cervix is favorable- no need for ripening.) Pelvic Exam Dilation: 5.5 Effacement (%): 80 station: 0 Position: OA Cervix Position: mid Consistency: soft Vaginal Exam Presentation: Cephalic Contractions Monitor Mode: External Contraction Frequency(min): 3-4 Contraction Duration(sec): 50 Intensity: Moderate/Strong Fetus A Heart Rate Baseline: 143 Presentation: Cephalic Variability: Moderate (6-25 BPM) Categories: Category I FHR Rhythm: Regular Characteristics: Normal Accelerations: 15 X 15 Decelerations: None Assessment and Plan Assessment and plan (1) Term : Status: Acute Objective Abnormal lab results 06/07/22 Range/Units 09:54 Hct 35.8 L (36.0-46.0) % Temp Pulse Resp BP 97.9 F 70 16 129/60 06/07/22 18:10 06/07/22 21:04 06/07/22 09:22 06/07/22 18:12 Laboratory Results WBC 8.07 10^3/uL (4.4-10.8) 06/07/22 09:54 RBC 4.24 10^6/uL (3.93-5.22) 06/07/22 09:54 Hgb 12.3 g/dL (11.2-15.7) 06/07/22 09:54 Hct 35.8 % (36.0-46.0) L 06/07/22 09:54 MCV 84 fL (80-95) 06/07/22 09:54 MCH 29.0 pg (27.0-33.0) 06/07/22 09:54 MCHC 34.4 % (32.0-36.0) 06/07/22 09:54 RDW 12.7 % (11.7-14.6) 06/07/22 09:54 Plt Count 223 10^3/uL (130-400) 06/07/22 09:54 MPV 9.7 fL (8.0-11.0) 06/07/22 09:54 COVID-19 Source Nasal/Nares 06/07/22 16:43 SARS-CoV-2 (PCR) Negative (Negative) 06/07/22 16:43 Patient ABO/Rh A Negative 06/07/22 09:54 Antibody Screen NEGATIVE 06/07/22 09:54 Subjective Interval history since last seen: Patient requests alternative analgesia if she has not made significant progress since last exam Interventions Pain Management Interventions: Epidural (Anesthesia paged after patient requesting additional analgesia. Nitrous oxide not effective). Results Hemoglobin/Hematocrit: Hgb 12.3 g/dL (11.2-15.7) 06/07/22 09:54 Hct 35.8 % (36.0-46.0) L 06/07/22 09:54 Abnormal Lab Findings: Abnormal Labs 06/07/22 09:54 Hct 35.8 L
--- NOTE | 2022-06-07 21:25 | W.ANESPRE ---
General Info Date of Service Date Performed: 06/07/22 Height: 5 ft 9 in Weight: 95.254 kg Body Mass Index (BMI): 31.0 Meds Allergies and Home Medications Allergies Allergy/AdvReac Type Severity Reaction Status Date / Time No Known Allergies Allergy Verified 05/22/22 10:03 Home Medication Medication Instructions Recorded prenat.vits,martha,[id number] 1 tab PO DAILY 09/21/20 famotidine 10 mg tablet (Pepcid AC) 10 mg PO DAILY 04/25/22 Current Visit Medications: Current Medications Generic Name Dose Route Start Last Admin Trade Name Freq PRN Reason Stop Dose Admin Ephedrine Sulfate 5 mg 06/07/22 21:02 Ephedrine 50 Mg/Ml Vial IVP DIRECTED PRN Famotidine 10 mg 06/08/22 08:30 Famotidine 20 Mg Tab PO DAILY ADELFO Fentanyl/Ropivacaine 200 ml 06/07/22 21:15 Fentanyl/Ropivacaine 2 Mcg/Ml And 0.1% 200 Ml Cadd Cassette EP DIRECTED ADELFO Ringer's Solution 1,000 mls @ 125 mls/hr 06/07/22 09:30 06/07/22 18:13 IV 125 mls/hr INFUSION ADELFO Administration Sodium Chloride 500 mls @ 0 mls/hr 06/07/22 09:29 Saline 500ml Bag IV PRN PRN As Directed Oxytocin/Sodium Chloride 30 unit in 500 mls @ 2 mls/hr 06/07/22 09:30 06/07/22 14:51 Pitocin/Normal Saline IV 12 milliunits/min INFUSION ADELFO 12 mls/hr Titration Protocol 2 MILLIUNITS/MIN Ringer's Solution 250 mls @ 500 mls/hr 06/07/22 21:02 IV 06/07/22 21:31 BOLUS ONE IV Miscellaneous Supplies 1 each 06/07/22 09:30 Iv Access IV DIRECTED ADELFO Naloxone HCl 0 mg 06/07/22 21:02 Naloxone 0.4 Mg/Ml Vial IVP DIRECTED PRN Multivitamins 1 tab 06/08/22 08:30 Multivitamin W/Ca,Fe Tab PO DAILY ADELFO Sodium Chloride 0 ml 06/07/22 09:29 Normal Saline Flush 10 Ml Syr IVP PRN PRN PFSH Active Problems Active Problems: Problem Status Onset Code Term Z34.90 Z34.90 Rh negative state in antepartum period O26.899, Z67.91 Medical History Medical History (Updated 06/07/22 @ 09:36 by Leah Trevino MD) care following vaginal delivery (spontaneous vaginal delivery) 12/23/2020. 40 W5D JACOBY Driscoll Tobacco Smoking/Tobacco Use Status: Never Alcohol Alcohol Intake: current Alcohol intake frequency: a few times a month Alcohol type: wine Substance Use Substance use type: does not use Prental History History 2 Para 1 Hx # Term Pregnancies 1 Multiple births 0 Hx # Pregnancies 0 Ectopic pregnancies 0 AB induced 0 Hx Number of Living Children 1 AB spontaneous 0 Past Pregnancies Del. Date GA/Weeks # Preg Succ Route Wgt Sex Labor Lgth Anesthesia Location Prov Complic 12/23/20 41 No Yes vaginal 4110.681 g Female 12hrs [facility], Dr. Sawyer Delivery Date: 12/23/20 Last Updated by: Mary Brunson Post-date IOL, no meds for labor, nml , Yamila Vital Signs and Lab Results Vital Signs Most Recent Vital Signs in EMR: Most Recent Vital Signs Temp Pulse Resp BP 36.6 C 89 16 129/60 06/07/22 18:10 06/07/22 21:24 06/07/22 09:22 06/07/22 18:12 Lab Results 06/07/22 09:54 Blood Type / Crossmatch: Patient ABO/Rh A Negative 06/07/22 Antibody Screen NEGATIVE 06/07/22 Complete Blood Count: White Blood Count 8.07 10^3/uL (4.4-10.8) 06/07/22 09:54 Red Blood Count 4.24 10^6/uL (3.93-5.22) 06/07/22 09:54 Hemoglobin 12.3 g/dL (11.2-15.7) 06/07/22 09:54 Hematocrit 35.8 % (36.0-46.0) L 06/07/22 09:54 Platelet Count 223 10^3/uL (130-400) 06/07/22 09:54 Complete Metabolic Panel: No Data to Display Liver Function Panel: No Data to Display Coagulation Panel: No Data to Display Cardiac Panel: No Data to Display Arterial Blood Gas: No Data to Display Venous Blood Gas: No Data to Display Pancreas Panel: No Data to Display Thyroid Panel: No Data to Display Infectious Disease: Coronavirus (COVID-19)(PCR) Negative (Negative) 06/07/22 16:43 Coronavirus 2019 Source Nasal/Nares 06/07/22 16:43 Blood Cultures: No Data to Display Toxicology Panel: Urine Amphetamines Screen Negative (Negative) 05/13/22 11:10 Urine Benzodiazepines Screen Negative (Negative) 05/13/22 11:10 Urine Barbiturates Screen Negative (Negative) 05/13/22 11:10 Urine Cocaine Screen Negative (Negative) 05/13/22 11:10 Urine Methadone Screen Negative (Negative) 05/13/22 11:10 Urine Opiates Screen Negative (Negative) 05/13/22 11:10 Ur Tricyclic Antidepressants Screen Negative (Negative) 05/13/22 11:10 Ur Tetrahydrocannabinol (THC) Scrn Negative (Negative) 05/13/22 11:10 Panel: No Data to Display Anesthesia Assessment and Plan Anesthesia History Personal History: No History of Anesthesia Complications Family History: No Family History of Anesthesia Complications Exercise Tolerance Exercise Tolerance: Metabolic Equivalents>4 Pertinent Negatives Pertinent Negatives: No Major Cardiovascular Symptoms or Complaints and No Major Pulmonary Symptoms or Complaints Cardiac & Pulmonary Exam Cardiac Exam: Normal S1/S2 Heart Sounds Pulmonary Exam: Clear Bilateral Breath Sounds Implantable Cardiac Device Does patient have a Pacemaker or an ICD?: No Airway Exam Known Difficult Airway: No Mallampati Class: 3 Mouth Opening: Normal (> 3cm) Thyromental Distance: Greater than 3 cm Neck Range of Motion: Full ROM Neck Circumference: Normal Teeth Condition: Normal Dentition ASA Classification ASA Score: ASA 2 Emergency Case?: No NPO Status NPO Status: Full Stomach Status Status: Confirmed Anesthesia Plan Resuscitation Status: Full Code Anesthesia Technique: Epidural Anesthesia Airway Planned: Natural Airway Monitors Used: Standard Monitors
[2022-06-07] MEDS: FentaNYL/ROPIvacaine 2 mcg/ml and 0.1% 200 ML CADD Cassette EP (21:50)
--- NOTE | 2022-06-07 22:23 | W.ANESNEU ---
Epidural/Spinal Catheter Date Performed: 06/07/22 Procedure Start: 21:36 Procedure Stop: 22:23 Requesting Provider: Leah Trevino Procedure Location: Obstetrics Reason Performed: Labor Epidural Standard Monitors Applied: Blood Pressure, SpO2 and See EMR for corresponding vital signs Patient Position: Sitting Sedation Given (Indicate Dose Given): No Sedation given Patient Mental Status: Awake Sterility: Hand Hygiene, Surgical Cap, Surgical Mask, Sterile Gloves and Chlorhexidine Procedure Location: L3-L4 Interspace Epidural Needle: Tuohy 18 Gauge Needle Length: 3.5 Inch Needle Approach: Midline Epidural Procedure: Skin Prepped, Sterile Drape Placed, 1% Lidocaine to skin and subcutaneous tissue with 25G needle, Tuohy Needle placed, BEBETO to Saline Used, Epidural Catheter Placed, Negative Heme, Negative CSF Flow and Tuohy Needle Removed Catheter Placed?: Catheter Placed Test Dose (Indicate Dose Given): 3ml 1.5% Lidocaine with 1:200K Epinephrine Given Loss of Resistance Depth (cm): 7 Catheter depth at skin (cm): 13 Dressing: Sorbaview Dressing Placed, Mastisol Used and Dressing reinforced with Tape Epidural Provider Bolus (Indicate Dose Given): Total bolus dose given in 3-5 ml divided doses, Total Ropivacaine 0.1% with Fentanyl 2mcg/ml Given from pump. (ml) Dose:: 13 mL and Total Bupivacaine 0.25% Given (ml) Dose:: 6 mL Additives (Indicate Dose Given ): Fentanyl PF Dose:: 100mcg Infusion Medication: Medication Infusion Began Medication Infusion: Ropivacaine 0.1% with Fentanyl 2mcg/ml Maintenance Infusion Rate (ml/hour): 12 PCEA Bolus Dose (ml): 5 Block Level: T10 Paresthesia: Right Paresthesia Duration: Transient Ultrasound: Not Used Number of Attempts (See previous attempts in note section): 1 Procedure Tolerated: No Complications and Patient tolerated well Procedure Outcome: Successful Procedure Comment:: Following initial boluses off the pump, patient still reporting some discomfort. Dr. Trevino was already present at bedside and with consultation with MD, decision was made that at current labor pattern, a more dense epidural would be tolerated. See note above. Patient had vaginal exam following with Dr. Trevino and reported decreased sensation. Performed By: Leah Trevino
--- NOTE | 2022-06-07 23:32 | OBVDS_ITS ---
Date of service: 06/07/22 Time of Service: 23:32 OB Labor/ Delivery Information Baby A Delivery Delivery Method: Spontaneaous Presentation: Cephalic Cephalic Position: Vertex Vertex Position: Right Occipital Anterior Breech Position: N/A Cord Description-Baby A: 3 Vessels Amniotic Fluid: Clear Estimated Blood Loss: 100 Delivery Outcome: Liveborn Infant Complications: none Transferred: Remains with Mother Providers Doctor: Leah Trevino Surveyor Oil [employer] Directional: Emmy Berry Nurse: Haily Maldonado Nurse: Claribel Kay Labor/Delivery Information Number of Babies in Womb: 1 Steroids Given: None Reason Steroids Not Administered: N/A Group Beta Strep: Negative Antibiotics Administered: No Rubella Status: Immune Blood Type: A- Varicella Immunity: Immune Born En Route: No Maternal Complications: None Shoulder Dystocia: No Note: delivered over intact perineum. After delivery of the was placed on the mother's abdomen and the cord was doubly clamped and cut after it had stopped pulsating. Placenta was delivered intact with a normal configuration and three-vessel cord. Minimal uterine bleeding. Stages of Labor Onset of Labor Date: 06/07/22 Complete Dilatation Date: 06/07/22 Complete Dilatation Time: 22:50 ROM Baby A: 06/07/22 ROM Baby A: 16:59 ROM Total Time- Baby A: [id number] Delivery Date-Baby A: 06/07/22 Infant Delivery Time-Baby A: 23:00 Labor Stage 2 Duration: 10 minutes Placenta Delivery Date-Baby A: 06/07/22 Placenta Delivery Time-Baby A: 23:10 Labor-Stage 3 Duration: 10 minutes Placenta Cultured: No Placenta Status: Delivered Baby A Gender: Female (She will be named Charlene) Gestational Status: Term (39-41.6 wks) Gestational Age in Weeks/Days: 40 Weeks and 4 Days weight: 8 lb 2.866 oz Length-Baby A: 22 in Score-1 Minute Interval(Baby A) Heart Rate-1 minute: 100 BPM or Greater Respiratory Effort- 1 minute: Spontaneous/Strong Cry Muscle Tone-1 minute: Active Movement Reflex Response-1 minute: Prompt Response Color-1 minute: Bluish Hands or Feet Total Score-1 minute: 9 Score-5 Minute Interval(Baby A) Heart Rate- 5 minute: 100 BPM or Greater Respiratory Effort-5 minute: Spontaneous/Strong Cry Muscle Tone-5 minute: Active Movement Reflex Response-5 minute: Prompt Response Color-5 minute: Bluish Hands or Feet Total Score- 5 minute: 9 Interventions Induction Indication: Post Date, Type of Induction: Artifical Rupture of Membranes (clear fluid.) and Pitocin rate at(mU/min): 12 maximum rate of infusion .,/ Episiotomy Episiotomy Description: None./ Repair of Laceration Type: None (infant delivered over intact perineum), Laceration Extension: N/A. Sponge Count Correct: N/A, Sharp Count Correct: N/A.
[2022-06-08] MEDS: fentaNYL 100 MCG/2 ML VIAL EP (00:02)
[2022-06-08 00:17] VITALS: BP 106/51; PULSE 80
[2022-06-08 00:42] VITALS: BP 115/58; PULSE 90
[2022-06-08] MEDS: Acetaminophen 325 MG TAB 650 MG PO ×3 (01:23→14:25)
[2022-06-08] MEDS: Ibuprofen 600 MG TAB PO ×3 (01:24→14:25)
[2022-06-08] MEDS: Calcium Carbonate *TUMS* 500 MG CHEW 1000 MG PO (01:24)
[2022-06-08 01:25] VITALS: BP 111/56; PULSE 73
[2022-06-08 02:38] VITALS: BP 115/64; PULSE 72
[2022-06-08 07:43] VITALS: BP 106/63; PULSE 72; RESP 18; TEMP 36.4; O2SAT 100
[2022-06-08] MEDS: Prenatal Multivitamin w/CA,FE TAB 1 TAB PO (08:11)
[2022-06-08] MEDS: Famotidine 20 MG TAB 10 MG PO (08:12)
--- NOTE | 2022-06-08 10:51 | W.PM.OBPNV1 ---
Date of service: 06/08/22 Time of Service: 10:51 Assessment and Plan Assessment and plan (1) (spontaneous vaginal delivery): Status: Acute Assessment and plan: day 1. Breast-feeding well. We will plan on discharge home in the a.m. (2) Rh negative state in antepartum period: Status: Acute Assessment and plan: Patient will receive RhoGAM prior to discharge. Subjective Subjective Interval history: day 1 after spontaneous vaginal delivery over intact perineum. Patient comments: Pain well controlled (Reports uterine cramping. Has used ibuprofen.), Tolerating diet and Flatus present Patient's Mood: Tired but feels well. Overall patient is pleased with her experience. She is grateful that she had the epidural. baby status: Doing well, Nursing well, Rooming in and Strong Bonding Observed [place] feeding status: Exclusively breast feeding Exam Physical Exam Vital signs: Temp Pulse Resp BP Pulse Ox 97.5 F L 72 18 106/63 100 06/08/22 07:43 06/08/22 07:43 06/08/22 07:43 06/08/22 07:43 06/08/22 07:43 Vital Signs Reviewed: Yes Constitutional Constitutional: no acute distress HEENT Exam HEENT Exam: Normal Neck Exam Neck Exam: Normal Respiratory Exam Respiratory Exam: Normal Cardiovascular Exam Cardiovascular Exam: Normal Abdominal Exam Abdomen: Tender Comments: Subjectively tender but no pain with palpation Fundal Exam Fundus: Below Umbilicus and Firm Rectal Exam Rectal Exam: Not Done Extremities Exam Extremity Exam: Normal Back/Spine/Pelvis Exam Back Exam: Normal Skin Exam Skin Exam: Normal Neurological Exam Neurological Exam: Normal Psychiatric Exam Psychiatric Exam: Normal Results Hemoglobin/Hematocrit: Hgb 12.3 g/dL (11.2-15.7) 06/07/22 09:54 Hct 35.8 % (36.0-46.0) L 06/07/22 09:54 Abnormal Lab Findings: Abnormal Labs 06/07/22 09:54 Hct 35.8 L
--- NOTE | 2022-06-08 17:10 | W.ANESPOSTOP ---
Postoperative Evaluation Date, Time and Location Date Performed: 06/08/22 Time Performed: 16:55 Patient Location: Obstetrics Vital Signs Most Recent Imported Vital Signs: Most Recent Vital Signs Temp Pulse Resp BP Pulse Ox 36.4 C L 72 18 106/63 100 06/08/22 07:43 06/08/22 07:43 06/08/22 07:43 06/08/22 07:43 06/08/22 07:43 Assessment Mental Status: Awake (Alert & Oriented to Patient Baseline) Airway and Respiratory Function: Patent airway with normal (patient baseline) respiratory exam Cardiovascular Function: Hemodynamically Stable Hydration Status: Adequately Hydrated Nausea & Vomiting: No Nausea or Vomiting Pain: Pt. Denies Any Pain Peripheral Nerve Block: Patient did not receive a nerve block Postoperative Comments:: Patient reported epidural helped with delivery, no concerns.
[2022-06-09] MEDS: Ibuprofen 600 MG TAB PO (00:31)
[2022-06-09] MEDS: Acetaminophen 325 MG TAB 650 MG PO (00:32)
[2022-06-09 10:00] VITALS: BP 105/62; PULSE 70; RESP 17; TEMP 37
--- NOTE | 2022-06-09 10:21 | W.PM.OBDISCH ---
Date of service: 06/09/22 Time of Service: 10:21 DS: Diagnosis Discharge Diagnosis (1) (spontaneous vaginal delivery): Status: Acute (2) Rh negative state in antepartum period: Status: Acute Discharge Plan Disposition Patient Disposition: Home Condition: Good Discharge Details Reason For Visit: IOL Admit Date/Time: 06/07/22 09:15 Admit Provider: Leah Trevino Attending Provider: Leah Trevino Hospital Course Hospital Course: Patient was admitted to the center at 40 W4D EGA and underwent an oxytocin induction of labor for postdates . Her labor was uncomplicated and he had a spontaneous vaginal delivery of a viable female infant to be named Charlene on 06/07/2022 at 2300 hrs. rate 8 pounds 2 ounces Apgars 9/9. Patient was discharged home on day 2 successfully breast-feeding. She will use ibuprofen and acetaminophen for pain control. The plan is to have her follow-up in 2 weeks in 6 weeks [facility] Home Meds and New Rx's Prescriptions: No Action famotidine [Pepcid AC] 10 mg tablet 10 mg PO DAILY prenat.vits,martha,[id number] Tablet 1 tab PO DAILY Patient Comments: gummies, instructions say to take 2; as of 09/21/20 is no longer taking the gummies. Discharge Instructions Stand Alone Forms: BC Instructions, BC Post Vaginal Deliver Activity:: Activity as Tolerated Equipment/Supplies:: No Equipment Needed Diet:: As Tolerated OB:DS Summary Summary Vaginal Delivery Method: Spontaneaous Episiotomy Description: None Laceration Description: None ( delivered over intact perineum) Laceration Extension: N/A Contraception Discussed Contraception Discussed: No (Patient and her do not use contraception), Infant Gender-Baby A: Female (She will be named Charlene) weight: 8 lb 2.866 oz Status at Discharge Functional status at discharge: independent ambulation Overall status at discharge: patient is back to baseline Mental Status: mental status grossly normal Speech and Movement: speech and movement normal Mood: congruent mood Affect: normal affect Exam Physical Exam Vital signs: Temp Pulse Resp BP Pulse Ox 97.5 F L 72 18 106/63 100 06/08/22 07:43 06/08/22 07:43 06/08/22 07:43 06/08/22 07:43 06/08/22 07:43 Vital Signs Reviewed: Yes Constitutional Constitutional: no acute distress HEENT Exam HEENT Exam: Not Done Neck Exam Neck Exam: Normal Respiratory Exam Respiratory Exam: Normal Cardiovascular Exam Cardiovascular Exam: Normal Abdominal Exam Abdomen: Other (Nontender) Fundal Exam Fundus: Below Umbilicus and Firm Rectal Exam Rectal Exam: Not Done Extremities Exam Extremity Exam: Normal; negative Edema Back/Spine/Pelvis Exam Back Exam: Normal Skin Exam Skin Exam: Normal Neurological Exam Neurological Exam: Normal Psychiatric Exam Psychiatric Exam: Normal PFSH All Active Problems (Updated 06/08/22 @ 10:56 by Leah Trevino MD) (spontaneous vaginal delivery) (Acute) 12/23/2020. 40 W5D EGA Kenyatta Driscoll 06/07/2022. 40 W6D EGAJosue FJosue Chang Term (Acute) (Acute) Rh negative state in antepartum period (Acute) 09/21/20. Rhogam given. Medical History (Updated 06/08/22 @ 10:56 by Leah Trevino MD) care following vaginal delivery Family History Father Well adult Mother Well adult Maternal Grandfather Colon cancer Social History Smoking/Tobacco Use Status: Never Smoking risk assessment performed?: Yes Alcohol Intake: current Alcohol Intake frequency: a few times a month Alcohol type: wine Substance use type: does not use Household members: spouse and other Details: H-Victor Hugo. Number of Children: 0 Do you feel safe at home: Yes Do you feel safe in your relationship?: Yes Additional Social history: Pt plays organ, piano and clarinet. She and have known each other since childhood. Female Reproductive History Menstrual control method: other History History 2 Para 1 Hx # Term Pregnancies 1 Multiple births 0 Hx # Pregnancies 0 Ectopic pregnancies 0 AB induced 0 Hx Number of Living Children 1 AB spontaneous 0 Past Pregnancies Del. Date GA/Weeks # Preg Succ Route Wgt Sex Labor Lgth Anesthesia Location Prov Complic 12/23/20 41 No Yes vaginal 9 lb 1 oz Female 12hrs [facility], Dr. Sawyer Delivery Date: 12/23/20 Last Updated by: Mary Brunson Post-date IOL, no meds for labor, nml , Yamila DS: Data Vitals/I&O Vitals and I&O: Vital Signs Temperature 97.5 F L 06/08/22 07:43 Pulse 72 06/08/22 07:43 Pulse Rhythm Regular 06/08/22 07:43 Respiratory Rate 18 06/08/22 07:43 Blood Pressure 106/63 06/08/22 07:43 Blood Pressure Mean 77 06/08/22 07:43 Pulse Oximetry 100 06/08/22 07:43 Oxygen Delivery Method Room Air 06/07/22 09:22 Oxygen Flow Rate 0 06/07/22 09:22 Intake & Output 06/08/22 06/08/22 06/09/22 11:59 23:59 11:59 Intake Total 1000 / 1000 Output Total 1300 / 1300 Balance -300 / -300 Intake: IV 1000 / 1000 Output: Urine 1300 / 1300 Other: Urine Color Yellow
== END 2022-06-09 11:00 | disposition home or self-care (01) | DRG 806 ==
PROVIDERS: Admitting Provider Obstetrics & Gynecology Gynecology; Visit Provider Obstetrics & Gynecology Gynecology
DX: O48.0 Post-term pregnancy (principal); O36.0930 Maternal care for other rhesus isoimmunization, third trimester, not applicable or unspecified; Z37.0 Single live birth; Z3A.40 40 weeks gestation of pregnancy
CPT/HCPCS: 36415; 85027; 86850; 86900; 86901; 87635; J3010

== ENCOUNTER 2023-07-23 05:35 | Outpatient (CLI) | payer MEDICAID, SELFPAY ==
[2023-07-23 11:36] LABS: Abs Immature Grans 0.03 10^3/uL (0.0-0.06); Absolute Basophil Count 0.07 10^3/uL (0.0-0.2); Absolute Lymphocyte Count 1.95 10^3/uL (1.2-3.4); Absolute Monocyte Count 0.44 10^3/uL (0.1-0.8); Absolute Neutrophil Count 6.46 10^3/uL (1.2-6.7); Basophils % 0.8 %; Eosinophils % 1.1 %; HCT 40.4 % (36.0-46.0); HGB 13.4 g/dL (11.2-15.7); Immature Grans % 0.3 %; Lymphocytes % 21.5 %; MCH 28.5 pg (27.0-33.0); MCHC 33.2 % (32.0-36.0); MCV 86 fL (80-95); MPV 10.1 fL (8.0-11.0); Monocytes % 4.9 %; Neutrophils % 71.4 %; Platelet Count 279 10^3/uL (130-400); RDW 12.1 % (11.7-14.6); RDW-SD 38.2 fL; WBC 9.05 10^3/uL (4.4-10.8)
[2023-07-23 18:36] LABS: Hepatitis B Surface Ag Negative (Negative)
[2023-07-23 19:05] LABS: HIV-1/2 Ag & Ab Screen Negative (Negative)
[2023-07-23 19:10] LABS: Hepatitis C Ab w Rflx HCV PCR Negative (Negative)
[2023-07-24 09:14] LABS: Varicella IgG Antibody Positive (See Note)
[2023-07-24 09:35] LABS: Rubella IgG Ab (UVM) Positive (See Note)
[2023-07-24 23:26] LABS: Syphilis IgG w/Reflex Nonreactive (Nonreactive)
== END 2023-07-23 05:36 | disposition home or self-care (01) ==
LOC: LBO 05:36
PROVIDERS: Obstetrics & Gynecology; Visit Provider Advanced Practice Midwife
DX: Z34.91 Encounter for supervision of normal pregnancy, unspecified, first trimester (principal); Z3A.11 11 weeks gestation of pregnancy
CPT/HCPCS: 36415; 86787; 86803; 86850; 86900; 86901; 87340; 87389; 85025; 86762; 86780

== ENCOUNTER 2023-07-23 10:40 | Outpatient (REF) | payer MEDICAID, SELFPAY ==
--- NOTE | 2023-07-23 10:30 | PAPFT_PTH ---
PATIENT: Ana Maria Pacheco LOC: [facility] U#:[id number] AGE/SX: 22/F ROOM: RE07/23/[address]: Jenna Sawyer MD : [id number] BED: DIS: 07/23/2023 SPEC #: [id number] RECD: 07/23/23 13:08 STATUS: KOBE REMichelle #: [id number] [place]: 07/23/23 10:[address]: Jenna Sawyer DEPT: [facility] Cytology RECD BY: Danette Cain ENTERED: 07/23/23 13:08 SP TYPE: PAPFT OTHR DR: Unknown,Unknown Tissues: 1 - CX/ENDOCX FOR PAP SMEARS Procedures: PAP THIN PREP/UVM Screening Comments: [id number] (CHLAMYDIA/GC)
[2023-07-24 16:16] LABS: Chlamydia Result Negative (Negative); GC Result Negative (Negative)
== END 2023-07-23 10:41 | disposition home or self-care (01) ==
LOC: LBN 10:40
PROVIDERS: Visit Provider Obstetrics & Gynecology
DX: Z34.91 Encounter for supervision of normal pregnancy, unspecified, first trimester (principal); Z3A.11 11 weeks gestation of pregnancy
CPT/HCPCS: 87491; 87591; 88142; 87086

== ENCOUNTER → 2023-09-22 03:08 | Outpatient (CLI) | payer MEDICAID, SELFPAY ==
--- NOTE | 2023-09-22 07:30 | DI.US_ITS ---
Exam(s) US OB 2-3 TRIMESTER EXAM: US OB 2-3 TRIMESTER CLINICAL HISTORY: anatomy screening,z34.91. TECHNIQUE: Transabdominal obstetrical ultrasound performed. COMPARISON: US POCUS EXAM from 07/03/2023 FINDINGS: Number of fetuses: 1 position: BREECH heart rate: 140bpm Placental location: There is a grade 1 posterior placenta. The placental tip is 6.5 cm from the inte rnal os. No evidence of previa. Amniotic fluid index: Amount of fluid is within normal limits. ANATOMICAL SURVEY: Within normal limits. BIOMETRIC DATA: BPD: 4.42cm, 19weeks 3days HC: 17.21cm, 19weeks 5days AC: 14.57cm, 19weeks 6days FL: 3.03cm, 19weeks 3days Cisterna magna: 2.9mm Cerebellum: 1.8cm Lateral ventricle: 0.5 cm EFW: 304.51g, 0.68lb, 26.4% Composite Age: 19weeks 4days MOOKIE: 02/12/2024 Heart Rate: 140bpm ANATOMICAL SURVEY: Four-chambered heart: Unremarkable. RVOT: Unremarkable. LVOT: Unremarkable. Left-sided stomach: Unremarkable. urinary bladder: Unremarkable. Bilateral kidneys: Unremarkable. Three-vessel cord: Unremarkable. Cord insertion: Unremarkable. Posterior fossa: Unremarkable. ventricles: Unremarkable. nose/lips: Unremarkable. Palate: Unremarkable. spine: Unremarkable. Two arms and two legs: Unremarkable. There looks to be an anterior uterine fibroid present. IMPRESSION: 1. Single live intrauterine gestation as above. 2. Normal anatomic survey. DATA REPOSITORY:
== END ==
PROVIDERS: Visit Provider Obstetrics & Gynecology
DX: Z34.91 Encounter for supervision of normal pregnancy, unspecified, first trimester (principal)
CPT/HCPCS: 76805

== ENCOUNTER 2023-11-20 04:29 | Outpatient (CLI) | payer MEDICAID, SELFPAY ==
[2023-11-20 10:07] LABS: Abs Immature Grans 0.05 10^3/uL (0.0-0.06); Absolute Basophil Count 0.03 10^3/uL (0.0-0.2); Absolute Eosinophil Count 0.26 10^3/uL (0.0-0.7); Absolute Lymphocyte Count 1.59 10^3/uL (1.2-3.4); Absolute Monocyte Count 0.54 10^3/uL (0.1-0.8); Absolute Neutrophil Count 6.56 10^3/uL (1.2-6.7); Basophils % 0.3 %; Eosinophils % 2.9 %; HCT 37.5 % (36.0-46.0); HGB 12.5 g/dL (11.2-15.7); Immature Grans % 0.6 %; Lymphocytes % 17.6 %; MCH 29.4 pg (27.0-33.0); MCHC 33.3 % (32.0-36.0); MCV 88 fL (80-95); MPV 9.9 fL (8.0-11.0); Neutrophils % 72.6 %; Platelet Count 227 10^3/uL (130-400); RBC 4.25 10^6/uL (3.93-5.22); RDW 12.3 % (11.7-14.6); RDW-SD 39.2 fL; WBC 9.03 10^3/uL (4.4-10.8)
[2023-11-20 11:06] LABS: Glucose,1 Hr (Glucola) 74 mg/dL (80-140)
== END 2023-11-20 04:30 | disposition home or self-care (01) ==
LOC: LBO 04:29
PROVIDERS: Visit Provider Obstetrics & Gynecology
DX: Z34.90 Encounter for supervision of normal pregnancy, unspecified, unspecified trimester (principal); O26.899 Other specified pregnancy related conditions, unspecified trimester; Z67.91 Unspecified blood type, Rh negative
CPT/HCPCS: 36415; 82950; 86850; 86900; 86901; 90384; 85025

== ENCOUNTER 2024-01-13 11:24 | Outpatient (REF) | payer MEDICAID, SELFPAY | END 2024-01-13 11:25 | LOC: LBN 11:24 | PROVIDERS: Visit Provider Obstetrics & Gynecology | DX: Z34.93 Encounter for supervision of normal pregnancy, unspecified, third trimester (principal) | CPT/HCPCS: 87081 ==

== ENCOUNTER 2024-01-27 12:21 | Outpatient (CLI) | payer MEDICAID, SELFPAY ==
[2024-01-27 11:29] LABS: Abs Immature Grans 0.04 10^3/uL (0.0-0.06); Absolute Basophil Count 0.03 10^3/uL (0.0-0.2); Absolute Eosinophil Count 0.13 10^3/uL (0.0-0.7); Absolute Lymphocyte Count 1.75 10^3/uL (1.2-3.4); Absolute Neutrophil Count 7.14 10^3/uL (1.2-6.7); Basophils % 0.3 %; Eosinophils % 1.3 %; HCT 36.5 % (36.0-46.0); HGB 12.8 g/dL (11.2-15.7); Immature Grans % 0.4 %; Lymphocytes % 17.9 %; MCHC 35.1 % (32.0-36.0); MCV 86 fL (80-95); MPV 10.1 fL (8.0-11.0); Monocytes % 7.2 %; Neutrophils % 72.9 %; Platelet Count 204 10^3/uL (130-400); RBC 4.27 10^6/uL (3.93-5.22); RDW 12.6 % (11.7-14.6); RDW-SD 39.1 fL; WBC 9.79 10^3/uL (4.4-10.8)
[2024-01-27 11:52] LABS: ALT 18 U/L (14-59); AST 19 U/L (15-37); Albumin 2.7 g/dL (3.4-5.0); Alkaline Phosphatase 119 U/L (46-116); Anion Gap 7.3 mmol/L (3-11); BUN 9 mg/dL (7-18); CO2 25.7 mmol/L (21.0-32.0); CREATININE 0.7 mg/dL (0.55-1.02); Calcium 8.8 mg/dL (8.5-10.1); Chloride 108 mmol/L (98-107); Estimated GFR 124.55 (mL/min/1.73m2); Glucose 81 mg/dL (74-106); Potassium 3.9 mmol/L (3.5-5.1); Sodium 141 mmol/L (136-145); Total Protein 6.6 g/dL (6.4-8.2)
--- OUTSIDE RECORDS SUMMARY | 2024-01-27 12:23 | XMS_ITS | Encounter Summary ---
Author Organization [facility] Address [address] [place] [address] Care Team Providers Care Gathering Machine Setter Name Role Phone Unavailable Primary Care Provider Unavailabl e Encounter Details Date Type Department Care Team (Late st Contact Info) Description 07/25/2023 Lab Requisition [facility] Pathology & Laboratory Medicine - [address] [address] Jenna Sawyer MD [address] [place] [address] [place] [address] Encounter for supervision of normal , unspecified, first trimester Social History Tobacco Use Types Packs/Day Years Used Date Smoking Tobacco: Never Assessed Interpersonal Safety Answer Date Record ed Physically Hurt Never 06/08/2020 Verbally Threaten Not on file 06/08/2020 Sex and Gender Information Value Date Recorded Sex Assigned at Not on file Gender Identity Not on file Sexual Orientation Not on file documented as of this encounter Plan of Treatment Not on file documented as of this encounter Procedures Procedure Name Priority Date/Time Associated Diagnosis Comments PAP TEST Today 07/23/2023 10:30 EDT Encounter for supervision of normal , unspecified, first trimester documented in this encounter Results * PAP TEST (07/23/2023 10:30 EDT) Specimens A. 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 07/30/2023 14:24 EDT [facility] Attestation . 07/30/2023 14:24 EDT [facility] at 1424 Clinical History See below 07/30/19 14:24 EDT [facility] Performing Lab [facility] 07/30/2023 14:24 EDT [facility] Scanned Images 07/30/2023 14:24 EDT [facility] Pap Test CERVIX UTERI STRUCTURE / Unknown 07/23/2023 10:30 EDT 07/25/2023 9:51 EDT Jenna Sawyer MD PATHOLOGY ORDERABLES [facility] [address] [place], [place] [phone] documented in this encounter Visit Diagnoses Diagnosis Encounter for supervision of normal , unspecified, first trimester documented in this encounter
--- OUTSIDE RECORDS SUMMARY | 2024-01-27 12:23 | XMS_ITS | Encounter Summary ---
Author Organization [facility] Address [address] [place] [address] Care Team Providers Care Air Duct Mechanic Name Role Phone Unavailable Primary Care Provider Unavailabl e Encounter Details Date Type Department Care Team (Late st Contact Info) Description 07/23/2023 Lab Requisition [facility] Pathology & Laboratory Medicine - [facility] [address] [place], [place] [id number] Outr Resulting Lab, Provider Social History Tobacco Use Types Packs/Day Years [...] Procedure Name Priority Date/Time Associated Diagnosis Comments CHLAMYDIA/N. GONORRHOEAE AMPLIFIED NUCLEIC ACID, THINPREP Today 07/23/2023 10:30 EDT documented in this encounter Results * CHLAMYDIA/N. GONORRHOEAE AMPLIFIED RNA, THINPREP (07/23/2023 10:30 EDT) Neisseria gonorrhoeae Result Negative Negative 07/24/2023 16:11 EDT [facility] Chlamydia trachomatis Result Negative Negative 07/24/2023 16:11 EDT [facility] Pap Test CERVIX UTERI STRUCTURE / Unknown 07/23/2023 10:30 EDT 07/24/2023 11:23 EDT Provider Outr Resulting Lab MICROBIOLOGY - GENERAL ORDERABLES [facility] [address] [place] [address] documented in this encounter Visit Diagnoses Not on filedocumented in this encounter
--- OUTSIDE RECORDS SUMMARY | 2024-01-27 12:23 | XMS_ITS | Referral Summary ---
Author Organization [facility] Address [address] [place] [address] Care Team Providers Care Security Assessor Name Role Phone Unavailable Primary Care Provider Unavailabl e Social History Tobacco Use Types Packs/Day Years Used Date Smoking Tobacco: Never Assessed Interpersonal Safety Answer Date Record ed Physically Hurt Never 06/08/2020 Verbally Threaten Not on file 06/08/2020 Sex and Gender Information Value Date Recorded Sex Assigned at Not on file Gender Identity Not on file Sexual Orientation Not on file Plan of Treatment Not on file Procedures Procedure Name Priority Date/Time Associated Diagnosis Comments HEPATITIS C AB W REFLEX TO HCV RNA BY PCR Routine 07/23/2023 11:20 EDT from Last 3 Months or Most Recently Relevant to Health Maintenance Results * HEPATITIS C AB W REFLEX TO HCV RNA BY PCR (07/23/2023 11:20 EDT) Hep C Antibody Negative Negative 07/23/2023 19:05 EDT [facility] Blood VENOUS BLOOD / Unknown 07/23/2023 11:20 EDT 07/23/2023 17:30 EDT Provider Outr Resulting Lab CHEMISTRY & BLOOD GAS ORDERABLES [facility] [address] [place] [address] from Last 3 Months or Most Recently Relevant to Health Maintenance
--- OUTSIDE RECORDS SUMMARY | 2024-01-27 12:24 | XMS_ITS | Encounter Summary ---
Author Organization [facility] Address [address] [place] [address] Care Team Providers Care Hospital Medical Assistant Name Role Phone Unavailable Primary Care Provider Unavailabl e Encounter Details Date Type Department Care Team (Late st Contact Info) Description 06/08/2020 Lab Requisition [facility] Pathology & Laboratory Medicine - [address] [address] Outr Resulting Lab, Provider Social History Tobacco [...] REFLEX TO HCV RNA BY PCR Routine 06/08/2020 13:57 EDT HEPATITIS B SURFACE ANTIGEN Routine 06/08/2020 13:57 EDT documented in this encounter Results * HEPATITIS B SURFACE ANTIGEN (06/08/2020 13:57 EDT) Hep B Surface Ag Negative Negative 06/09/2020 8:56 EDT [facility] Blood VENOUS BLOOD / Unknown 06/08/2020 13:57 EDT 06/08/2020 20:37 EDT Provider Outr Resulting Lab CHEMISTRY & BLOOD GAS ORDERABLES [facility] [address] [place] [address] * HEPATITIS C AB W REFLEX TO HCV RNA BY PCR (06/08/2020 13:57 EDT) Hep C Antibody Negative Negative 06/09/2020 9:46 EDT [facility] Blood VENOUS BLOOD / Unknown 06/08/2020 13:57 EDT 06/08/2020 20:37 EDT Provider Outr Resulting Lab CHEMISTRY & BLOOD GAS ORDERABLES [facility] [address] [place] [address] documented in this encounter Visit Diagnoses Not on filedocumented in this encounter
--- OUTSIDE RECORDS SUMMARY | 2024-01-27 12:24 | XMS_ITS | Encounter Summary ---
Author Organization [facility] Address [address] [place] [address] Care Team Providers Care Painter And Body Mechanic Apprentice Name Role Phone Unavailable Primary Care Provider Unavailabl e Encounter Details Date Type Department Care Team (Late st Contact Info) Description 07/23/2023 Lab Requisition [facility] Pathology & Laboratory Medicine - [facility] [address] [place] [address] Outr Resulting Lab, Provider Social History Tobacco [...] RNA BY PCR Routine 07/23/2023 11:20 EDT HEPATITIS B SURFACE ANTIGEN Routine 07/23/2023 11:20 EDT documented in this encounter Results * HEPATITIS B SURFACE ANTIGEN (07/23/2023 11:20 EDT) Hep B Surface Ag Negative Negative 07/23/2023 18:31 EDT [facility] Blood VENOUS BLOOD / Unknown 07/23/2023 11:20 EDT 07/23/2023 17:30 EDT Provider Outr Resulting Lab CHEMISTRY & BLOOD GAS ORDERABLES [facility] [address] [place], [place] [phone] * HEPATITIS C AB W REFLEX TO HCV RNA BY PCR (07/23/2023 11:20 EDT) Hep C Antibody Negative Negative 07/23/2023 19:05 EDT [facility] Blood VENOUS BLOOD / Unknown 07/23/2023 11:20 EDT 07/23/2023 17:30 EDT Provider Outr Resulting Lab CHEMISTRY & BLOOD GAS ORDERABLES [facility] [address] [place] [address] documented in this encounter Visit Diagnoses Not on filedocumented in this encounter
--- OUTSIDE RECORDS SUMMARY | 2024-01-27 12:24 | XMS_ITS | Encounter Summary ---
Author Organization [facility] Address [address] [place] [address] Care Team Providers Care Keno Dealer Name Role Phone Unavailable Primary Care Provider Unavailabl e Encounter Details Date Type Department Care Team (Late st Contact Info) Description 07/23/2023 Lab Requisition [facility] Pathology & Laboratory Medicine - [facility] [address] [place], [place] [phone] Outr Resulting Lab, Provider Social History Tobacco [...] Procedure Name Priority Date/Time Associated Diagnosis Comments HIV 1/2 ANTIGEN AND ANTIBODY, 4TH GENERATION Routine 07/23/2023 11:20 EDT documented in this encounter Results * HIV 1/2 ANTIGEN AND ANTIBODY, 4TH GENERATION (07/23/2023 11:20 EDT) HIV 1 and 2 Antibody/p24 Antigen, 4th Generation Negative Negative 07/23/2023 19:[address] [facility] Comment:If acute HIV-1 infec tion is suspected in a high risk patient, submit plasma specimen for HIV-1 RNA quantitation test. Blood VENOUS BLOOD / Unknown 07/23/2023 11:20 EDT 07/23/2023 17:[address] [facility] - 07/23/2023 19:00 EDT Fourth Generation assay performed on the Siemens Centaur XPT. Provider Outr Resulting Lab IMMUNOLOGY A ND SEROLOGY ORDERABLES [facility] [address] [place] [address] documented in this encounter Visit Diagnoses Not on filedocumented in this encounter
--- OUTSIDE RECORDS SUMMARY | 2024-01-27 12:24 | XMS_ITS | Encounter Summary ---
Author Organization [facility] Address [address] [place] [address] Care Team Providers Care Gear Hobber Operator Name Role Phone Unavailable Primary Care Provider Unavailabl e Encounter Details Date Type Department Care Team (Late st Contact Info) Description 11/23/2021 Lab Requisition [facility] Pathology & Laboratory Medicine - [facility] [address] [place] [address] Outr Resulting Lab, Provider Social History Tobacco [...] Procedure Name Priority Date/Time Associated Diagnosis Comments HOLD SST Today 11/22/2021 14:32 EDT HEPATITIS C AB W REFLEX TO HCV RNA BY PCR Today 11/22/2021 14:32 EDT HEPATITIS B SURFACE ANTIGEN Today 11/22/2021 14:32 EDT documented in this encounter Results * HOLD SST (11/22/2021 14:32 EDT) Hold Hold 11/23/2021 18:45 EDT [facility] Blood VENOUS BLOOD / Unknown 11/22/2021 14:32 EDT 11/23/2021 17:36 EDT Provider Outr Resulting Lab LAB INFO SER VICE AND SUPPORT & PHONE RESULT [facility] [address] [place] [address] * HEPATITIS B SURFACE ANTIGEN (11/22/2021 14:32 EDT) Hep B Surface Ag Negative Negative 11/26/2021 9:29 EDT [facility] Blood VENOUS BLOOD / Unknown 11/22/2021 14:32 EDT 11/23/2021 17:27 EDT Provider Outr Resulting Lab CHEMISTRY & BLOOD GAS ORDERABLES Performing Organization Address [facility] Co de Phone Number [facility] [address] [place] [address] * HEPATITIS C AB W REFLEX TO HCV RNA BY PCR (11/22/2021 14:32 EDT) Hep C Antibody Negative Negative 11/26/2021 9:21 EDT [facility] Blood VENOUS BLOOD / Unknown 11/22/2021 14:32 EDT 11/23/2021 17:27 EDT Provider Outr Resulting Lab CHEMISTRY & BLOOD GAS ORDERABLES Performing Organization Address City/[facility]/ZIP Co de Phone Number [facility] [address] [place] [address] documented in this encounter Visit Diagnoses Not on filedocumented in this encounter
--- OUTSIDE RECORDS SUMMARY | 2024-01-27 12:24 | XMS_ITS | Encounter Summary ---
Author Organization [facility] Address [address] [place] [address] Care Team Providers Care Lead Cargo Mover Name Role Phone Unavailable Primary Care Provider Unavailabl e Encounter Details Date Type Department Care Team (Late st Contact Info) Description 06/08/2020 Lab Requisition [facility] Pathology & Laboratory Medicine - [facility] [address] [place] [address] Outr Resulting Lab, Provider Social History Tobacco [...] Procedure Name Priority Date/Time Associated Diagnosis Comments RUBELLA IGG ANTIBODY Routine 06/08/2020 13:59 EDT VARICELLA IGG ANTIBODY Routine 06/08/2020 13:59 EDT documented in this encounter Results * VARICELLA IGG ANTIBODY (06/08/2020 13:59 EDT) Varicella IgG Ab Positive See Note 06/09/2020 11:12 EDT [facility] Comment:Presence of detectab le Varicella Zoster virus IgG antibodies. Blood VENOUS BLOOD / Unknown 06/08/2020 13:59 EDT 06/08/2020 20:37 EDT Provider Outr Resulting Lab IMMUNOLOGY A ND SEROLOGY ORDERABLES [facility] [address] [place] [address] * RUBELLA IGG ANTIBODY (06/08/2020 13:59 EDT) Rubella IgG Ab Negative See Note 06/09/2020 11:15 EDT [facility] Comment:Sample is considered negative for IgG antibodies to Rubella virus. A negative result presumes that immunity has not been acquired. If exposure to Rubella virus is suspected despite a negative finding, a second specimen should be collected and tested for Rubella IgG Ab one or two weeks later. Blood VENOUS BLOOD / Unknown 06/08/2020 13:59 EDT 06/08/2020 20:37 EDT Provider Outr Resulting Lab CHEMISTRY & BLOOD GAS ORDERABLES [facility] [address] [place] [address] documented in this encounter Visit Diagnoses Not on filedocumented in this encounter
--- OUTSIDE RECORDS SUMMARY | 2024-01-27 12:24 | XMS_ITS | Encounter Summary ---
Author Organization [facility] Address [address] [place] [address] Care Team Providers Care Forensic Examiner Name Role Phone Unavailable Primary Care Provider Unavailabl e Encounter Details Date Type Department Care Team (Late st Contact Info) Description 06/09/2020 Lab Requisition [facility] Pathology & Laboratory Medicine - [facility] [address] [place] [address] Outr Resulting Lab, Provider Social History Tobacco [...] Associated Diagnosis Comments CHLAMYDIA/N. GONORRHOEAE AMPLIFIED NUCLEIC ACID Routine 06/08/2020 13:35 EDT documented in this encounter Results * CHLAMYDIA/N. GONORRHOEAE AMPLIFIED RNA (06/08/2020 13:35 EDT) Neisseria gonorrhoeae Result Negative Negative 06/12/2020 15:43 EDT [facility] Chlamydia trachomatis Result Negative Negative 06/12/2020 15:43 EDT [facility] Swab ENTIRE ENDOCERVIX / Unknown 06/08/2020 13:35 EDT 06/09/2020 19:35 EDT Provider Outr Resulting Lab MICROBIOLOGY - GENERAL ORDERABLES [facility] [address] [place] [address] documented in this encounter Visit Diagnoses Not on filedocumented in this encounter
--- OUTSIDE RECORDS SUMMARY | 2024-01-27 12:24 | XMS_ITS | Encounter Summary ---
Author Organization [facility] Address [address] [place] [address] Care Team Providers Care Accounting File Clerk Name Role Phone Unavailable Primary Care Provider Unavailabl e Encounter Details Date Type Department Care Team (Late st Contact Info) Description 07/23/2023 Lab Requisition [facility] Pathology & Laboratory Medicine - [facility] [address] [place], [place] [id number] Outr Resulting Lab, Provider Social History Tobacco [...] Associated Diagnosis Comments RUBELLA IGG ANTIBODY Routine 07/23/2023 11:20 EDT VARICELLA IGG ANTIBODY Routine 07/23/2023 11:20 EDT documented in this encounter Results * VARICELLA IGG ANTIBODY (07/23/2023 11:20 EDT) Varicella IgG Ab Positive See Note 07/24/2023 9:09 EDT [facility] Comment:Presence of detectab le Varicella Zoster virus IgG antibodies. Blood VENOUS BLOOD / Unknown 07/23/2023 11:20 EDT 07/23/2023 17:30 EDT Provider Outr Resulting Lab IMMUNOLOGY A ND SEROLOGY ORDERABLES [facility] [address] [place], [place] [id number] * RUBELLA IGG ANTIBODY (07/23/2023 11:20 EDT) Rubella IgG Ab Positive See Note 07/24/2023 9:30 EDT [facility] Comment:Positive for IgG ant ibodies to Rubella virus. Blood VENOUS BLOOD / Unknown 07/23/2023 11:20 EDT 07/23/2023 17:30 EDT Provider Outr Resulting Lab CHEMISTRY & BLOOD GAS ORDERABLES [facility] [address] [place], [place] [id number] documented in this encounter Visit Diagnoses Not on filedocumented in this encounter
--- OUTSIDE RECORDS SUMMARY | 2024-01-27 12:24 | XMS_ITS | Encounter Summary ---
Author Organization [facility] Address [address] [place] [address] Care Team Providers Care Upper Shaper Name Role Phone Unavailable Primary Care Provider Unavailabl e Encounter Details Date Type Department Care Team (Late st Contact Info) Description 11/23/2021 Lab Requisition [facility] Pathology & Laboratory Medicine - [facility] [address] [place], [place] [id number] Outr Resulting Lab, Provider Social History Tobacco [...] 1/2 ANTIGEN AND ANTIBODY, 4TH GENERATION Routine 11/22/2021 14:32 EDT documented in this encounter Results * HIV 1/2 ANTIGEN AND ANTIBODY, 4TH GENERATION (11/22/2021 14:32 EDT) HIV 1 and 2 Antibody/p24 Antigen, 4th Generation Negative Negative 11/25/2021 9:24 EDT [facility] Comment:If acute HIV-1 infec tion is suspected in a high risk patient, submit plasma specimen for HIV-1 RNA quantitation test. Blood VENOUS BLOOD / Unknown 11/22/2021 14:32 EDT 11/23/2021 17:27 EDT Narrative [facility] - 11/25/2021 9:24 EDT Fourth Generation assay performed on the Siemens Centaur XPT. Provider Outr Resulting Lab IMMUNOLOGY A ND SEROLOGY ORDERABLES [facility] [address] [place] [address] documented in this encounter Visit Diagnoses Not on filedocumented in this encounter
--- OUTSIDE RECORDS SUMMARY | 2024-01-27 12:24 | XMS_ITS | Encounter Summary ---
Author Organization [facility] Address [address] [place] [address] Care Team Providers Care Reading Assistant Name Role Phone Unavailable Primary Care Provider Unavailabl e Encounter Details Date Type Department Care Team (Late st Contact Info) Description 11/23/2021 Lab Requisition [facility] Pathology & Laboratory Medicine - [facility] [address] [place], [place] [address] Outr Resulting Lab, Provider Social History Tobacco [...] Comments HOLD SST Today 11/22/2021 14:32 EDT RUBELLA IGG ANTIBODY Today 11/22/2021 14:32 EDT VARICELLA IGG ANTIBODY Today 11/22/2021 14:32 EDT documented in this encounter Results * HOLD SST (11/22/2021 14:32 EDT) Hold Hold 11/23/2021 18:[address] [facility] Blood VENOUS BLOOD / Unknown 11/22/2021 14:32 EDT 11/23/2021 17:35 EDT Provider Outr Resulting Lab LAB INFO SER VICE AND SUPPORT & PHONE RESULT [facility] [address] [place] [address] * VARICELLA IGG ANTIBODY (11/22/2021 14:32 EDT) Varicella IgG Ab Positive See Note 11/26/2021 10:[address] [facility] Comment:Presence of detectab le Varicella Zoster virus IgG antibodies. Blood VENOUS BLOOD / Unknown 11/22/2021 14:32 EDT 11/23/2021 17:27 EDT Provider Outr Resulting Lab IMMUNOLOGY A ND SEROLOGY ORDERABLES Performing Organization Address City/[facility] Co de Phone Number [facility] [address] [place] [address] * RUBELLA IGG ANTIBODY (11/22/2021 14:32 EDT) Rubella IgG Ab Positive See Note 11/26/2021 10:[address] [facility] Comment:Positive for IgG ant ibodies to Rubella virus. Blood VENOUS BLOOD / Unknown 11/22/2021 14:32 EDT 11/23/2021 17:27 EDT Provider Outr Resulting Lab CHEMISTRY & BLOOD GAS ORDERABLES [facility] [address] [place] [address] documented in this encounter Visit Diagnoses Not on filedocumented in this encounter
--- OUTSIDE RECORDS SUMMARY | 2024-01-27 12:24 | XMS_ITS | Encounter Summary ---
Author Organization [facility] Address [address] [place] [address] Care Team Providers Care Ballistics Professor Name Role Phone Unavailable Primary Care Provider Unavailabl e Encounter Details Date Type Department Care Team (Late st Contact Info) Description 06/08/2020 Lab Requisition [facility] Pathology & Laboratory Medicine - [facility] [address] [place], [place] [id number] Outr Resulting Lab, Provider Social History Tobacco [...] 1/2 ANTIGEN AND ANTIBODY, 4TH GENERATION Routine 06/08/2020 13:57 EDT documented in this encounter Results * HIV 1/2 ANTIGEN AND ANTIBODY, 4TH GENERATION (06/08/2020 13:57 EDT) HIV 1 and 2 Antibody/p24 Antigen, 4th Generation Negative Negative 06/09/2020 9:30 EDT [facility] Comment: If acute HIV-1 infection is suspected in a high risk ??patient, submit plasma specimen for HIV-1 RNA quantitation test. Fourth Generation assay performed on the Siemens Xageekaur. Blood VENOUS BLOOD / Unknown 06/08/2020 13:57 EDT 06/08/2020 20:37 EDT Provider Outr Resulting Lab IMMUNOLOGY A ND SEROLOGY ORDERABLES [facility] [address] [place] [address] documented in this encounter Visit Diagnoses Not on filedocumented in this encounter
[2024-01-30 17:15] LABS: Total Bile Acids 1.82 nmol/mL (<=19.00); Total Chenodeoxycholic acid 0.74 nmol/mL (<=6.00); Total Deoxycholic acid 0.48 nmol/mL (<=6.00)
== END 2024-01-27 12:22 | disposition home or self-care (01) ==
LOC: LBO 12:22
PROVIDERS: PCP Obstetrics & Gynecology; Visit Provider Obstetrics & Gynecology
DX: Z34.93 Encounter for supervision of normal pregnancy, unspecified, third trimester (principal); L29.9 Pruritus, unspecified
CPT/HCPCS: 36415; 80053; 83789; 85025

== ENCOUNTER 2024-02-06 07:37 | Outpatient (CLI) | payer MEDICAID, SELFPAY ==
[2024-02-06 08:41] LABS: COVID-19 PCR Negative (Negative); Influenza A PCR Negative (Negative); Influenza B PCR Negative (Negative); RSV PCR Negative (Negative)
[2024-02-06 08:43] LABS: Source Nasopharynx
[2024-02-06 09:06] VITALS: BP 126/71; PULSE 103; TEMP 36.4
--- NOTE | 2024-02-06 09:29 | W.OBNST ---
Date of service: 02/06/24 Time of Service: 09:30 NST Evaluation Reason for NST Reasons for Nonstress Test: OTHER, SEE COMMENT Reason for NST Other: URI and GI symptoms Gestational Age Gestational Age in Weeks and Days: 40 Weeks and 0Days Test and Monitor Explained Test/Monitor Explained: Test Explained, Monitor Explained and Patient Verbalized Understanding Vital Signs Blood Pressure: 126/71 Pulse: 103 Temperature: 97.5 F Urine Results Urine Protein: Negative Urine Ketones: Negative Urine Glucose: Negative Urine Blood: Negative NST Information Date on Monitor: 02/06/24 Time on Monitor: 07:51 Date off Monitor: 02/06/24 Time off Monitor: 08:48 Total Time on Monitor: 57 NST Interventions: Notify Provider Contraction Frequency: 0 NST Evaluation Patient States Movement: Present FHR Baseline: 140 Variability: Moderate 6-25 bpm Accelerations: 15x15 Decelerations: None NST Results: Reactive Note Ultrasound Done: N/A. NST Note Note: Patient presented today for possibility of labor induction. Due to the fact that she is having cold-like symptoms despite negative FLUVID sampling, her induction will be postponed. We also have a large volume of patients on the center, and it does not seem prudent to schedule an elective induction at this point. These findings were discussed with the patient. Her cervix was examined she is found to be 2 to 3 cm, 50%, -2 station vertex. The plan will be for labor induction on 02/09/2024, unless she presents in spontaneous labor sooner. All questions were answered NST Reviewed and Verified by: Amena Rust
[2024-02-06 09:31] VITALS: BP 126/71; PULSE 103; TEMP 36.4
== END 2024-02-06 09:32 ==
LOC: BCD 07:38 → OBS 07:40
PROVIDERS: PCP Obstetrics & Gynecology; Visit Provider Obstetrics & Gynecology
DX: O26.893 Other specified pregnancy related conditions, third trimester (principal); J06.9 Acute upper respiratory infection, unspecified; Z3A.40 40 weeks gestation of pregnancy
CPT/HCPCS: 59025; 87637

== ENCOUNTER 2024-02-09 06:51 | Inpatient (IN) | payer MEDICAID, SELFPAY ==
[2024-02-09] VITALS (196 sets, daily range): BP systolic 100–138; BP diastolic 42–77; PULSE 0–139; RESP 15–18; TEMP 36.6–37.3; O2SAT 99–100; BMI 30.5
[2024-02-09 08:14] LABS: Abs Immature Grans 0.05 10^3/uL (0.0-0.06); Absolute Basophil Count 0.05 10^3/uL (0.0-0.2); Absolute Lymphocyte Count 1.13 10^3/uL (1.2-3.4); Absolute Monocyte Count 0.68 10^3/uL (0.1-0.8); Basophils % 0.4 %; Eosinophils % 0.8 %; HCT 35.3 % (36.0-46.0); HGB 11.8 g/dL (11.2-15.7); Immature Grans % 0.4 %; Lymphocytes % 9.6 %; MCH 29.5 pg (27.0-33.0); MCHC 33.4 % (32.0-36.0); MCV 88 fL (80-95); MPV 10.1 fL (8.0-11.0); Monocytes % 5.8 %; Platelet Count 183 10^3/uL (130-400); RDW 12.5 % (11.7-14.6); RDW-SD 40.5 fL; WBC 11.81 10^3/uL (4.4-10.8)
[2024-02-09 08:16] LABS: Absolute Eosinophil Count 0.09 10^3/uL (0.0-0.7)
[2024-02-09] MEDS: Lactated Ringers 1,000 ML 125 ML IV (09:42)
[2024-02-09] MEDS: Normal Saline Flush 10 ML SYR IVP (09:43)
--- NOTE | 2024-02-09 11:57 | HPE_ITS ---
Date of service: 02/09/24 Time of Service: 08:30 Assessment and Plan Assessment and plan (1) : Status: Acute Assessment and plan: P2 @40.3wks undergoing elective induction at term. Her was uncomplicated. Both her prior babies were induced and were uncomplicated deliveries. OB-HPI Labor/Delivery History of Present Illness Reason for Visit: Induction for post dates Chief Complaint: Scheduled Induction of Labor Indication for Induction: Other. MOOKIE Calculator Estimated Delivery Date Method Current WG Current Estimate 02/06/24 LMP (Certain) 40w 3d Other Estimates 02/09/24 Ultrasound #1 40w 0d Comments: Pt is here for an elective induction at term. History of Present Expected Delivery Route/Plan - FOB/ - Victor Hugo Pacheco (third baby together) Doesn't want to know gender until Specific Issues/Plan 1. Rh neg - rhogam @ 28 wks ___ 2. Declines genetics screening 3. Takes Benefiber, Magnesium and colace for constipation Narrative: Pt had a cold last week and still has some nasal congestion but says she is feeling better. She says she only has a cough if she gets postnasal drip. No sore throat or chest pain or fevers/chills. Review of Systems Constitutional Constitutional: Reports system reviewed and no additional complaints, except as documented Gastrointestinal Gastrointestinal: Denies nausea and Denies vomiting Genitourinary Genitourinary: Reports system reviewed and no additional complaints, except as documented Musculoskeletal Comments: No regular contractions PFSH All Active Problems (Updated 02/09/24 @ 12:01 by Jenna Sawyer MD) Itching (Acute) (Acute) Rh negative state in antepartum period (Acute) Medical History (Updated 02/09/24 @ 12:01 by Jenna Sawyer MD) Vaginal candidiasis Uterine prolapse without vaginal wall prolapse 06/2022. Stage 2 after 05/2022. Family History Father Well adult Mother Well adult Diabetes Maternal Grandfather Colon cancer Social History Smoking/Tobacco Use Status: Never Smoking risk assessment performed?: Yes Alcohol Intake: current Alcohol Intake frequency: a few times a month Alcohol type: wine Substance use type: does not use Household members: spouse and other Details: Joel. Housing: house Number of Children: 0 Do you feel safe at home: Yes Do you feel safe in your relationship?: Yes Additional Social history: Pt plays organ, piano and clarinet. She and have known each other since childhood. Female Reproductive History Menstrual control method: other History History 3 Para 2 Hx # Term Pregnancies 2 Multiple births 0 Hx # Pregnancies 0 Ectopic pregnancies 0 AB induced 0 Hx Number of Living Children 2 AB spontaneous 0 Past Pregnancies Del. Date GA/Weeks # Preg Succ Route Wgt Sex Labor Lgth Anesth esia Location Prov Complic 12/23/20 41 No Yes vaginal 9 lb 1 oz Female 12hrs [facility] , Dr. Sawyer 06/07/22 40 No Yes vaginal 8 lb 2.9 oz Female 12 hrs [facility] [place] Delivery Date: 12/23/20 Last Updated by: Mary Brunson Post-date IOL, no meds for labor, nml , [place] Delivery Date: 06/07/22 Last Updated by: Mary Brunson IOL for being overdue, got epidural for OP head position, Charlene Meds Allergies and Home Medications Allergies Allergy/AdvReac Type Severity Reaction Status Date / Time tree and shrub pollen Allergy Mild Other (See Verified 02/03/24 09:06 Comment) Home Medications ?Medication ?Instructions ?Recorded ?Confirmed ?Type prenat.vits,martha,yez-yjlg-tpcpi 1 tab PO DAILY 09/21/20 02/09/24 History famotidine 10 mg tablet 10 mg PO DAILY 07/03/23 02/09/24 History ascorbic acid (vitamin C) 250 mg 250 mg PO DAILY 08/20/23 02/09/24 History chewable tablet magnesium 200 mg tablet 400 mg PO DAILY 08/20/23 02/09/24 History docusate sodium 100 mg capsule 100 mg PO DAILY PRN 12/05/23 02/09/24 History Exam Physical Exam Vital signs: Temp Pulse Resp BP Pulse Ox 99.1 F 98 H 16 130/69 99 02/09/24 08:59 02/09/24 11:56 02/09/24 08:59 02/09/24 11:56 02/09/24 08:59 Vital Signs Reviewed: Yes Detailed Labor and Delivery Exam Dilation: 2 Effacement (%): 50 station: -3 Moralez Score: Cervical Points Exam 0 1 2 3 Dilation Closed 1-2cm 3-4 cm 5-6cm Effacement 0-30% 40-50% 60-70% 80% Consistency Firm Medium Soft Station -3 -2 -1,0 +1,+2 Position Posterior Mid Anterior Fetus A Heart Rate Baseline: 145 Monitor Accelerations: 15 X 15 Monitor Decelerations: None Variability: Moderate (6-25 BPM) Presentation: Vertex Categories: Category I Results Results Group Beta Strep: Negative Blood Type: A- Rubella Status: Immune Varicella Immunity: Immune Abnormal Lab Findings: Abnormal Labs 02/09/24 08:05 WBC 11.81 H Hct 35.3 L Absolute Neutrophils 9.80 H Absolute Lymphocytes 1.13 L Risk Assessment Risk for Shoulder Dystocia Historical/Initial OB: NEGATIVE FOR: Pelvic Abnormality, Pre- BMI>30, Previous Shoulder Dystocia or Previous Macrosomia Counseling: proven to 9lb 1 oz Risk for Pre-Eclampsia Date Initiated/Initials: not indicated, jk Yes, if one or more: NEGATIVE FOR: Hx Pre-E/Gest HTN, Chronic HTN, Multiple Gestation, Pre-gestational DM, Renal Disease, Systemic Lupus or APA Syndrome Yes, if 2 or more: NEGATIVE FOR: Nulliparity, Age>= 35 yrs, >10yr btwn pregnancies, BMI>30, ethinicty, Mother/Sister w/ Pre-E or Previous IUGR Risk for Post- Hemorrhage Initial: NEGATIVE FOR: Multiple Gestation, Previous PPH, Known Clotting Deficiency, Grand Multiparity or Anticoagulation Risks Reviewed Risks Reviewed Upon Admission: Yes WW Pocus Exam Exam testing Date/Time of Exam: Date of exam: 02/09/2024 Time of exam: 12:00 pm MOOKIE Calculator Estimated Delivery Date Method Current WG Current Estimate 02/06/24 LMP (Certain) 40w 3d Other Estimates 02/09/24 Ultrasound #1 40w 0d position Gestational age (weeks): 40 Presentation: Vertex Coding for Transabdominal exam: Complete exam
--- NOTE | 2024-02-09 12:07 | W.PM.OBNL1 ---
Date of service: 02/09/24 Time of Service: 12:07 Pelvic Exam Dilation: 3 Effacement (%): 70 station: -2 Cervix Position: anterior Consistency: soft Vaginal Exam Presentation: Vertex Contractions Contraction Frequency(min): 5min Fetus A Heart Rate Baseline: 145 Presentation: Vertex Variability: Moderate (6-25 BPM) Categories: Category I Accelerations: 15 X 15 Decelerations: None Amniotic Membrane Status: Ruptured (clear) Assessment and Plan Assessment and plan (1) Encounter for induction of labor: Status: Acute Assessment and plan: Pt on pitocin at 8mU. S/p AROM - clear fluid. FHT Cat 1. Will continue management as is. Objective Abnormal lab results 02/09/24 Range/Units 08:05 WBC 11.81 H (4.4-10.8) 10^3/uL Hct 35.3 L (36.0-46.0) % Absolute Neutrophils 9.80 H (1.2-6.7) 10^3/uL Absolute Lymphocytes 1.13 L (1.2-3.4) 10^3/uL Temp Pulse Resp BP Pulse Ox 99.1 F 95 H 16 130/69 99 02/09/24 08:59 02/09/24 12:04 02/09/24 08:59 02/09/24 11:56 02/09/24 08:59 Laboratory Results WBC 11.81 10^3/uL (4.4-10.8) H 02/09/24 08:05 RBC 4.00 10^6/uL (3.93-5.22) 02/09/24 08:05 Hgb 11.8 g/dL (11.2-15.7) 02/09/24 08:05 Hct 35.3 % (36.0-46.0) L 02/09/24 08:05 MCV 88 fL (80-95) 02/09/24 08:05 MCH 29.5 pg (27.0-33.0) 02/09/24 08:05 MCHC 33.4 % (32.0-36.0) 02/09/24 08:05 RDW 12.5 % (11.7-14.6) 02/09/24 08:05 Plt Count 183 10^3/uL (130-400) 02/09/24 08:05 MPV 10.1 fL (8.0-11.0) 02/09/24 08:05 Immature Gran % 0.4 % 02/09/24 08:05 Neutrophils % 83.0 % 02/09/24 08:05 Lymphocytes % 9.6 % 02/09/24 08:05 Monocytes % 5.8 % 02/09/24 08:05 Eosinophils % 0.8 % 02/09/24 08:05 Basophils % 0.4 % 02/09/24 08:05 Nucleated RBC % 0.0 % (0.0-0.3) 02/09/24 08:05 Absolute Neutrophils 9.80 10^3/uL (1.2-6.7) H 02/09/24 08:05 Absolute Lymphocytes 1.13 10^3/uL (1.2-3.4) L 02/09/24 08:05 Absolute Monocytes 0.68 10^3/uL (0.1-0.8) 02/09/24 08:05 Absolute Eosinophils 0.09 10^3/uL (0.0-0.7) 02/09/24 08:05 Absolute Basophils 0.05 10^3/uL (0.0-0.2) 02/09/24 08:05 ABO/Rh A Negative 02/09/24 08:05 Antibody Screen NEGATIVE 02/09/24 08:05 Vital Signs Reviewed: Yes Subjective Interval history since last seen: Pitocin at 8mU. Pt feeling mild contractions. Results Hemoglobin/Hematocrit: Hgb 11.8 g/dL (11.2-15.7) 02/09/24 08:05 Hct 35.3 % (36.0-46.0) L 02/09/24 08:05 Abnormal Lab Findings: Abnormal Labs 02/09/24 08:05 WBC 11.81 H Hct 35.3 L Absolute Neutrophils 9.80 H Absolute Lymphocytes 1.13 L
--- NOTE | 2024-02-09 15:33 | W.PM.OBNL1 ---
Date of service: 02/09/24 Time of Service: 15:15 Pelvic Exam Dilation: 5 Effacement (%): 80 station: -1 Cervix Position: anterior Consistency: soft Contractions Contraction Frequency(min): 2-3 Fetus A Heart Rate Baseline: 135 Presentation: Vertex Variability: Moderate (6-25 BPM) Categories: Category I Accelerations: 15 X 15 Decelerations: None Amniotic Membrane Status: Ruptured Assessment and Plan Assessment and plan (1) Encounter for induction of labor: Status: Acute Assessment and plan: P2 @40.3wks here for elective induction of labor on pitocin. FHT Cat 1. Desires epidural. Anesthesia notified and will come shortly. Objective Abnormal lab results 02/09/24 Range/Units 08:05 WBC 11.81 H (4.4-10.8) 10^3/uL Hct 35.3 L (36.0-46.0) % Absolute Neutrophils 9.80 H (1.2-6.7) 10^3/uL Absolute Lymphocytes 1.13 L (1.2-3.4) 10^3/uL Temp Pulse Resp BP Pulse Ox 99.1 F 89 16 117/77 99 02/09/24 14:37 02/09/24 15:32 02/09/24 08:59 02/09/24 15:03 02/09/24 08:59 Laboratory Results WBC 11.81 10^3/uL (4.4-10.8) H 02/09/24 08:05 RBC 4.00 10^6/uL (3.93-5.22) 02/09/24 08:05 Hgb 11.8 g/dL (11.2-15.7) 02/09/24 08:05 Hct 35.3 % (36.0-46.0) L 02/09/24 08:05 MCV 88 fL (80-95) 02/09/24 08:05 MCH 29.5 pg (27.0-33.0) 02/09/24 08:05 MCHC 33.4 % (32.0-36.0) 02/09/24 08:05 RDW 12.5 % (11.7-14.6) 02/09/24 08:05 Plt Count 183 10^3/uL (130-400) 02/09/24 08:05 MPV 10.1 fL (8.0-11.0) 02/09/24 08:05 Immature Gran % 0.4 % 02/09/24 08:05 Neutrophils % 83.0 % 02/09/24 08:05 Lymphocytes % 9.6 % 02/09/24 08:05 Monocytes % 5.8 % 02/09/24 08:05 Eosinophils % 0.8 % 02/09/24 08:05 Basophils % 0.4 % 02/09/24 08:05 Nucleated RBC % 0.0 % (0.0-0.3) 02/09/24 08:05 Absolute Neutrophils 9.80 10^3/uL (1.2-6.7) H 02/09/24 08:05 Absolute Lymphocytes 1.13 10^3/uL (1.2-3.4) L 02/09/24 08:05 Absolute Monocytes 0.68 10^3/uL (0.1-0.8) 02/09/24 08:05 Absolute Eosinophils 0.09 10^3/uL (0.0-0.7) 02/09/24 08:05 Absolute Basophils 0.05 10^3/uL (0.0-0.2) 02/09/24 08:05 ABO/Rh A Negative 02/09/24 08:05 Antibody Screen NEGATIVE 02/09/24 08:05 Vital Signs Reviewed: Yes Subjective Interval history since last seen: Pt is more uncomfortable with contractions. They have been more intense for about 2hrs. She is requesting a cervical exam and possible epidural. Results Hemoglobin/Hematocrit: Hgb 11.8 g/dL (11.2-15.7) 02/09/24 08:05 Hct 35.3 % (36.0-46.0) L 02/09/24 08:05 Abnormal Lab Findings: Abnormal Labs 02/09/24 08:05 WBC 11.81 H Hct 35.3 L Absolute Neutrophils 9.80 H Absolute Lymphocytes 1.13 L
--- NOTE | 2024-02-09 15:36 | ANES.PREOP_ITS ---
General Info Date of Service Date Performed: 02/09/24 Height: 5 ft 9 in Weight: 93.894 kg Body Mass Index (BMI): 30.5 Surgical Procedure: Labor epidural Meds Allergies and Home Medications Allergies Allergy/AdvReac Type Severity Reaction Status Date / Time tree and shrub pollen Allergy Mild Other (See Verified 02/03/24 09:06 Comment) Home Medication ?Medication ?Instructions ?Recorded prenat.vits,martha,oso-[id number] 1 tab PO DAILY 09/21/20 famotidine 10 mg tablet 10 mg PO DAILY 07/03/23 ascorbic acid (vitamin C) 250 mg 250 mg PO DAILY 08/20/23 chewable tablet magnesium 200 mg tablet 400 mg PO DAILY 08/20/23 docusate sodium 100 mg capsule 100 mg PO DAILY PRN 12/05/23 Current Visit Medications: Current Medications Generic Name Dose Route Start Last Admin Trade Name Freq PRN Reason Stop Dose Admin Fentanyl/Ropivacaine 200 ml 02/09/24 15:30 Fentanyl/Ropivacaine 2 Mcg/Ml And 0.1% 200 Ml Cadd Cassette EP DIRECTED ADELFO Ringer's Solution 1,000 mls @ 125 mls/hr 02/09/24 08:15 02/09/24 09:42 IV 125 mls/hr INFUSION ADELFO Administration Oxytocin 30 units/ Sodium 503 mls @ 2 mls/hr 02/09/24 10:00 02/09/24 15:29 Chloride IV 02/08/25 09:59 6 mls/hr INFUSION ADELFO 6 mls/hr Titration Protocol IV Miscellaneous Supplies 1 each 02/09/24 08:15 Iv Access IV DIRECTED ADELFO Sodium Chloride 0 ml 02/09/24 08:03 Normal Saline Flush 10 Ml Syr IVP PRN PRN Sodium Chloride 0 ml 02/09/24 08:30 02/09/24 09:43 Normal Saline Flush 10 Ml Syr IVP 10 ml BID ADELFO Administration Sodium Chloride 0 ml 02/09/24 08:03 Normal Saline 10 Ml Vial IJ DIRECTED PRN PFSH Active Problems Active Problems: Problem Status Onset Code Encounter for induction of labor Acute Z34.90 Itching Acute L29.9 Rh negative state in antepartum period Acute O26.899, Z67.91 Acute Z34.90 Medical History Medical History (Updated 02/09/24 @ 12:11 by Jenna Sawyer MD) Vaginal candidiasis Uterine prolapse without vaginal wall prolapse 06/2022. Stage 2 after 05/2022. Tobacco Smoking/Tobacco Use Status: Never Alcohol Alcohol Intake: current Alcohol intake frequency: a few times a month Alcohol type: wine Substance Use Substance use type: does not use Prental History History 2 3 Para 2 Hx # Term Pregnancies 2 Multiple births 0 Hx # Pregnancies 0 Ectopic pregnancies 0 AB induced 0 Hx Number of Living Children 2 AB spontaneous 0 Past Pregnancies Del. Date GA/Weeks # Preg Succ Route Wgt Sex Labor Lgth Anesth esia Location Prov Complic 12/23/20 41 No Yes vaginal 4110.681 g Female 12hrs NVR H, Dr. Sawyer 06/07/22 40 No Yes vaginal 3710.953 g Female 12 hrs [facility] [place] Delivery Date: 12/23/20 Last Updated by: Mary Brunson Post-date IOL, no meds for labor, nml , [place] Delivery Date: 06/07/22 Last Updated by: Mary Brunson IOL for being overdue, got epidural for OP head position, Charl[place] Vital Signs and Lab Results Vital Signs Most Recent Vital Signs in EMR: Most Recent Vital Signs Temp Pulse Resp BP Pulse Ox 37.3 C 89 16 117/77 99 02/09/24 14:37 02/09/24 15:32 02/09/24 08:59 02/09/24 15:03 02/09/24 08:59 Lab Results 02/09/24 08:05 Blood Type / Crossmatch: 2 Antibody Screen NEGATIVE 02/09/24 Complete Blood Count: 2 White Blood Count 11.81 10^3/uL (4.4-10.8) H 02/09/24 08:05 Red Blood Count 4.00 10^6/uL (3.93-5.22) 02/09/24 08:05 Hemoglobin 11.8 g/dL (11.2-15.7) 02/09/24 08:05 Hematocrit 35.3 % (36.0-46.0) L 02/09/24 08:05 Platelet Count 183 10^3/uL (130-400) 02/09/24 08:05 Complete Metabolic Panel: 2 Sodium 141 mmol/L (136-145) 01/27/24 11:24 Potassium 3.9 mmol/L (3.5-5.1) 01/27/24 11:24 Chloride 108 mmol/L (98-107) H 01/27/24 11:24 Carbon Dioxide 25.7 mmol/L (21.0-32.0) 01/27/24 11:24 BUN 9 mg/dL (7-18) 01/27/24 11:24 Creatinine 0.7 mg/dL (0.55-1.02) 01/27/24 11:24 Est GFR (CKD-EPI 2020) 124.55 (mL/min/1.73m2) 01/27/24 11:24 Calcium 8.8 mg/dL (8.5-10.1) 01/27/24 11:24 Albumin 2.7 g/dL (3.4-5.0) L 01/27/24 11:24 Glucose 81 mg/dL (74-106) 01/27/24 11:24 Liver Function Panel: 2 Alanine Aminotransferase (ALT/SGPT) 18 U/L (14-59) 01/27/24 11: 24 Aspartate Amino Transf (AST/SGOT) 19 U/L (15-37) 01/27/24 11:24 Coagulation Panel: 2 No Data to Display Cardiac Panel: 2 No Data to Display Arterial Blood Gas: 2 No Data to Display Venous Blood Gas: 2 No Data to Display Pancreas Panel: 2 No Data to Display Thyroid Panel: 2 No Data to Display Infectious Disease: 2 Coronavirus (COVID-19)(PCR) Negative (Negative) 02/06/24 07:50 Coronavirus 2019 Source Nasopharynx 02/06/24 07:50 Influenza Virus Type A (PCR) Negative (Negative) 02/06/24 07:5 0 Influenza Virus Type B (PCR) Negative (Negative) 02/06/24 07:5 0 Respiratory Syncytial Virus (PCR) Negative (Negative) 02/06/24 07:50 Blood Cultures: 2 No Data to Display Toxicology Panel: 2 No Data to Display Panel: 2 No Data to Display Anesthesia Assessment and Plan Anesthesia History Personal History: No History of Anesthesia Complications Family History: No Family History of Anesthesia Complications Exercise Tolerance Exercise Tolerance: Metabolic Equivalents>4 Pertinent Negatives Pertinent Negatives: No Major Cardiovascular Symptoms or Complaints, No Major Pulmonary Symptoms or Complaints and No History of CVA/TIA Cardiac & Pulmonary Exam Cardiac Exam: Normal S1/S2 Heart Sounds Pulmonary Exam: Clear Bilateral Breath Sounds Implantable Cardiac Device Does patient have a Pacemaker or an ICD?: No Airway Exam Known Difficult Airway: No Mallampati Class: 3 Mouth Opening: Normal (> 3cm) Thyromental Distance: Greater than 3 cm Neck Range of Motion: Full ROM Neck Circumference: Normal Teeth Condition: Normal Dentition ASA Classification ASA Score: ASA 2 Emergency Case?: No NPO Status NPO Status: Full Stomach () Status Status: Confirmed Anesthesia Plan Resuscitation Status: Full Code Anesthesia Technique: Labor Epidural Airway Planned: Natural Airway Monitors Used: Standard Monitors Preoperative Comments:: 5cm, 3rd baby
[2024-02-09] MEDS: Bupivacaine 0.25% Pres-Free 10 ML VIAL EP (16:20)
[2024-02-09] MEDS: FentaNYL/ROPIvacaine 2 mcg/ml and 0.1% 200 ML CADD Cassette EP (16:21)
[2024-02-09] MEDS: fentaNYL 100 MCG/2 ML VIAL EP (16:21)
--- NOTE | 2024-02-09 16:22 | W.ANESNEU ---
Epidural/Spinal Catheter Date Performed: 02/09/24 Procedure Start: 15:53 Procedure Stop: 16:51 Requesting Provider: Jenna Sawyer Procedure Location: Obstetrics Reason Performed: Labor Epidural Standard Monitors Applied: Blood Pressure, SpO2 and See EMR for corresponding vital signs Patient Position: Sitting Sedation Given (Indicate Dose Given): No Sedation given Patient Mental Status: Awake Sterility: Hand Hygiene, Surgical Cap, Surgical Mask, Sterile Gloves, Sterile Drape/Sheet and Chlorhexidine Procedure Location: L3-L4 Interspace Epidural Needle: Tuohy 18 Gauge Needle Length: 3.5 Inch Needle Approach: Midline Epidural Procedure: Skin Prepped, Sterile Drape Placed, 1% Lidocaine to skin and subcutaneous tissue with 25G needle, Tuohy Needle placed, BEBETO to Saline Used, Epidural Catheter Placed, Negative Heme, Negative CSF Flow and Tuohy Needle Removed Catheter Placed?: Catheter Placed Test Dose (Indicate Dose Given): 3ml 1.5% Lidocaine with 1:200K Epinephrine Given (at 1605) and Negative Test Dose Loss of Resistance Depth (cm): 5 Catheter depth at skin (cm): 11 Dressing: [place] Dressing Placed and Mastisol Used Epidural Provider Bolus (Indicate Dose Given): Total bolus dose given in 3-5 ml divided doses (at 1610) and Total Bupivacaine 0.25% Given (ml) Dose:: 7 ml Additives (Indicate Dose Given ): Fentanyl PF Dose:: 100 mcg Infusion Medication: Medication Infusion Began (at 1619) Medication Infusion: Ropivacaine 0.1% with Fentanyl 2mcg/ml Maintenance Infusion Rate (ml/hour): 12 PCEA Bolus Dose (ml): 5 Block Level: N/A Paresthesia: None Ultrasound: Not Used Number of Attempts (See previous attempts in note section): 1 Procedure Tolerated: No Complications and Patient tolerated well Procedure Outcome: Successful Procedure Comment:: Patient states she is still feeling the contractions and that they are still uncomfortable but she feels relaxed and calm between the contractions which is an improvement. Additional clinician bolus of 5 ml off the pump at 1631 with no real change. Offered to redo the epidural and patient wishes to keep the current epidural and does feel that it is helping. Performed By: Verona Marina
--- NOTE | 2024-02-09 17:52 | W.PM.OBNL1 ---
Date of service: 02/09/24 Time of Service: 17:45 Pelvic Exam Dilation: 6 Effacement (%): 90 station: 0 Contractions Contraction Frequency(min): 2-3 Fetus A Heart Rate Baseline: 135 Presentation: Vertex Variability: Moderate (6-25 BPM) Categories: Category I Accelerations: 15 X 15 Decelerations: None Amniotic Membrane Status: Ruptured Assessment and Plan Assessment and plan (1) Encounter for induction of labor: Status: Acute Assessment and plan: P2 @40.3wks, labor induction, on pitocin, now with epidural that is not working well. Making slow but steady labor progress. Cat 1 FHT. Will try to work on position changes to assist labor progress. Objective Abnormal lab results 02/09/24 Range/Units 08:05 WBC 11.81 H (4.4-10.8) 10^3/uL Hct 35.3 L (36.0-46.0) % Absolute Neutrophils 9.80 H (1.2-6.7) 10^3/uL Absolute Lymphocytes 1.13 L (1.2-3.4) 10^3/uL Temp Pulse Resp BP Pulse Ox 99.1 F 93 H 16 127/70 100 02/09/24 14:37 02/09/24 17:52 02/09/24 08:59 02/09/24 17:42 02/09/24 16:15 Laboratory Results WBC 11.81 10^3/uL (4.4-10.8) H 02/09/24 08:05 RBC 4.00 10^6/uL (3.93-5.22) 02/09/24 08:05 Hgb 11.8 g/dL (11.2-15.7) 02/09/24 08:05 Hct 35.3 % (36.0-46.0) L 02/09/24 08:05 MCV 88 fL (80-95) 02/09/24 08:05 MCH 29.5 pg (27.0-33.0) 02/09/24 08:05 MCHC 33.4 % (32.0-36.0) 02/09/24 08:05 RDW 12.5 % (11.7-14.6) 02/09/24 08:05 Plt Count 183 10^3/uL (130-400) 02/09/24 08:05 MPV 10.1 fL (8.0-11.0) 02/09/24 08:05 Immature Gran % 0.4 % 02/09/24 08:05 Neutrophils % 83.0 % 02/09/24 08:05 Lymphocytes % 9.6 % 02/09/24 08:05 Monocytes % 5.8 % 02/09/24 08:05 Eosinophils % 0.8 % 02/09/24 08:05 Basophils % 0.4 % 02/09/24 08:05 Nucleated RBC % 0.0 % (0.0-0.3) 02/09/24 08:05 Absolute Neutrophils 9.80 10^3/uL (1.2-6.7) H 02/09/24 08:05 Absolute Lymphocytes 1.13 10^3/uL (1.2-3.4) L 02/09/24 08:05 Absolute Monocytes 0.68 10^3/uL (0.1-0.8) 02/09/24 08:05 Absolute Eosinophils 0.09 10^3/uL (0.0-0.7) 02/09/24 08:05 Absolute Basophils 0.05 10^3/uL (0.0-0.2) 02/09/24 08:05 ABO/Rh A Negative 02/09/24 08:05 Antibody Screen NEGATIVE 02/09/24 08:05 Vital Signs Reviewed: Yes Subjective Interval history since last seen: Pt received an epidural but got only minimal relief from her contractions. She is feeling increased pelvic pressure. Results Hemoglobin/Hematocrit: Hgb 11.8 g/dL (11.2-15.7) 02/09/24 08:05 Hct 35.3 % (36.0-46.0) L 02/09/24 08:05 Abnormal Lab Findings: Abnormal Labs 02/09/24 08:05 WBC 11.81 H Hct 35.3 L Absolute Neutrophils 9.80 H Absolute Lymphocytes 1.13 L
--- NOTE | 2024-02-09 18:20 | W.OBNST ---
Date of service: 02/09/24 Time of Service: 08:00 NST Evaluation Reason for NST Reasons for Nonstress Test: POSTDATES Gestational Age Gestational Age in Weeks and Days: 40 Weeks and 3Days Test and Monitor Explained Test/Monitor Explained: Test Explained, Monitor Explained and Patient Verbalized Understanding Vital Signs Blood Pressure: 122/73 Pulse: 109 Temperature: 99.1 F Urine Results Urine Protein: Negative Urine Ketones: Negative Urine Glucose: Negative Urine Blood: Negative NST Information Date on Monitor: 02/09/24 Time on Monitor: 07:32 Date off Monitor: 02/09/24 Time off Monitor: 08:27 Total Time on Monitor: 55 NST Interventions: PO Hydration and Notify Provider Contraction Frequency: Occasional NST Evaluation Patient States Movement: Present FHR Baseline: 130 Variability: Moderate 6-25 bpm Accelerations: 15x15 Decelerations: None NST Results: Reactive Note Ultrasound Done: Presentation Presentation Results: vtx Coding for Presentation w/NST: Completed Exam. NST Note NST Reviewed and Verified by: Jenna Sawyer
--- NOTE | 2024-02-09 19:53 | W.OBDELIVERY ---
Date of service: 02/09/24 Time of Service: 19:53 OB Labor/ Delivery Information Baby A Delivery Delivery Method: Spontaneaous Presentation: Vertex Vertex Position: Right Occipital Posterior Cord Description-Baby A: 3 Vessels Amniotic Fluid: Clear Estimated Blood Loss: 150 Delivery Outcome: Liveborn Providers Doctor: Jenna Sawyer Nurse: Helena Caruso Nurse: Zara Olmedo Labor/Delivery Information Number of Babies in Womb: 1 Steroids Given: None Reason Steroids Not Administered: N/A Group Beta Strep: Negative Antibiotics Administered: No Rubella Status: Immune Blood Type: A- Varicella Immunity: Immune Maternal Complications: None Note: The pt underwent induction of labor at term via pitocin and then AROM. She received an epidural with minimal relief. She progressed to 9.5cm and was able to easily push through the remaining cervix to become fully dilated. She pushed twice to deliver the infant's head in [place] position followed by the shoulders and the rest of the body. The baby was placed on mom's abdomen. After >1min the cord was clamped x2 and cut. Cord blood collected. The placenta delivered with gentle cord traction and fundal massage and appeared intact. Fundus was firm with good hemostasis. Mom and baby stable at time of note. Stages of Labor Onset of Labor Date: 02/09/24 Onset of Labor Time: 13:00 Complete Dilatation Date: 02/09/24 Complete Dilatation Time: 19:28 Labor - Stage 1 Duration: 6 hours and 28 minutes ROM Baby A: 02/09/24 ROM Baby A: 11:54 Placenta Cultured: No Baby A Length-Baby A: 22 in
[2024-02-09] MEDS: Hamamelis Leaf/Glycerin 100 EACH BOX PR (20:01)
[2024-02-09] MEDS: Acetaminophen 325 MG TAB 650 MG PO (20:01)
[2024-02-09] MEDS: Ibuprofen 600 MG TAB PO (20:01)
[2024-02-09] MEDS: Dibucaine 1% 28 GM TUBE TP (21:46)
[2024-02-10 00:36] VITALS: BP 127/73; PULSE 77; RESP 17; TEMP 36.6
[2024-02-10] MEDS: Acetaminophen 325 MG TAB 650 MG PO ×2 (01:36→18:46)
[2024-02-10 01:52] VITALS: RESP 15
[2024-02-10 05:35] VITALS: BP 94/55; PULSE 67; TEMP 36.8
[2024-02-10] MEDS: Ibuprofen 600 MG TAB PO ×3 (05:36→18:46)
[2024-02-10 08:00] VITALS: BP 105/60; PULSE 65; RESP 17; TEMP 36.6; O2SAT 98
--- NOTE | 2024-02-10 12:10 | W.PM.OBPNV1 ---
Date of service: 02/10/24 Time of Service: 12:10 Assessment and Plan Assessment and plan (1) Rh negative state in antepartum period: Status: Acute Assessment and plan: plan Rhogam prior to discharge pending 's testing. (2) care following vaginal delivery: Status: Inactive Assessment and plan: PPD 1 . Pt is doing well. Plan discharge tomorrow am. Subjective Subjective Patient comments: No complaints and Tolerating diet baby status: Doing well, Nursing well, Rooming in and Strong Bonding Observed feeding status: Exclusively breast feeding Exam Physical Exam Vital signs: Temp Pulse Resp BP Pulse Ox 98.2 F 67 15 94/55 L 100 02/10/24 05:35 02/10/24 05:35 02/10/24 01:52 02/10/24 05:35 02/09/24 16:15 Vital Signs Reviewed: Yes Notable Details: stable Constitutional Constitutional: no acute distress and average body habitus Neck Exam Neck Exam: Normal Respiratory Exam Respiratory Exam: Normal Cardiovascular Exam Cardiovascular Exam: Not Done (No LE edema.) Fundal Exam Fundus: Below Umbilicus and Firm Rectal Exam Rectal Exam: Not Done Exam Patient deferred: perineal exam (intact, no ecchymosis or swelling) Extremities Exam Comment: normal Back/Spine/Pelvis Exam Back Exam: Not Done Skin Exam Skin Exam: Normal Neurological Exam Neurological Exam: Normal Psychiatric Exam Psychiatric Exam: Normal Results Hemoglobin/Hematocrit: Hgb 11.8 g/dL (11.2-15.7) 02/09/24 08:05 Hct 35.3 % (36.0-46.0) L 02/09/24 08:05 Abnormal Lab Findings: Abnormal Labs 02/09/24 08:05 WBC 11.81 H Hct 35.3 L Absolute Neutrophils 9.80 H Absolute Lymphocytes 1.13 L
--- NOTE | 2024-02-10 17:18 | W.PM.OBPNV1 ---
Date of service: 02/10/24 Time of Service: 17:21 Assessment and Plan Assessment and plan (1) Vaginal delivery: Status: Acute (2) URI (upper respiratory infection): Status: Acute Assessment and plan: Pt with nasal congestion but no evidence of sinus infection. Pt will continue to use OTC antihistamines. Qualifiers: URI type: unspecified viral URI Qualified Code(s): J06.9 - Acute upper respiratory infection, unspecified Subjective Subjective Interval history: Pt has URI.Covid neg test on02/06/24. Pt has been taking OTC anithistamine and cough suppressant with not much improvment in rhinorrhea. No fever or chills. Patient comments: Tolerating diet [place] baby status: Doing well, Nursing well, Rooming in and Strong Bonding Observed [place] feeding status: Exclusively breast feeding Exam Physical Exam Vital signs: Temp Pulse Resp BP Pulse Ox 97.9 F 65 17 105/60 98 02/10/24 08:00 02/10/24 08:00 02/10/24 08:00 02/10/24 08:00 02/10/24 08:00 Constitutional Constitutional: no acute distress Detailed HEENT Exam ENT: Present nares patent; Absent sinus tenderness Neck Exam Neck Exam: Normal Respiratory Exam Respiratory Exam: Normal Results Hemoglobin/Hematocrit: Hgb 11.8 g/dL (11.2-15.7) 02/09/24 08:05 Hct 35.3 % (36.0-46.0) L 02/09/24 08:05 Abnormal Lab Findings: Abnormal Labs 02/09/24 08:05 WBC 11.81 H Hct 35.3 L Absolute Neutrophils 9.80 H Absolute Lymphocytes 1.13 L
[2024-02-10 22:00] VITALS: BP 112/66; PULSE 69; RESP 18; TEMP 36.9
[2024-02-11] MEDS: Ibuprofen 600 MG TAB PO ×2 (02:20→08:26)
[2024-02-11] MEDS: Acetaminophen 325 MG TAB 650 MG PO ×2 (02:20→08:25)
--- NOTE | 2024-02-11 07:48 | W.PM.OBPNV1 ---
Date of service: 02/11/24 Time of Service: 07:48 Assessment and Plan Assessment and plan (1) Routine follow-up: Status: Acute Assessment and plan: Pt doing well PPD#2 s/p NVD of baby girl. Desires discharge to home. Reviewed reasons to call. F/u visit in 2wks. Exam Physical Exam Vital signs: Temp Pulse Resp BP Pulse Ox 98.4 F 69 18 112/66 98 02/10/24 22:00 02/10/24 22:00 02/10/24 22:00 02/10/24 22:00 02/10/24 08:00 Vital Signs Reviewed: Yes Constitutional Constitutional: no acute distress and cooperative Detailed HEENT Exam Head: Present normocephalic and atraumatic Respiratory Exam Respiratory Exam: Normal Abdominal Exam Abdomen: Tender (mildly) Fundal Exam Fundus: Below Umbilicus and Firm Extremities Exam Extremity Exam: negative Calf Tenderness or Edema Detailed Neurological Exam Neurological: Present alert, oriented X3 and CN II-XII intact Results Hemoglobin/Hematocrit: Hgb 11.8 g/dL (11.2-15.7) 02/09/24 08:05 Hct 35.3 % (36.0-46.0) L 02/09/24 08:05 Abnormal Lab Findings: Abnormal Labs 02/09/24 08:05 WBC 11.81 H Hct 35.3 L Absolute Neutrophils 9.80 H Absolute Lymphocytes 1.13 L
--- NOTE | 2024-02-11 07:49 | DSE_ITS ---
Date of service: 02/11/24 Time of Service: 07:49 DS: Diagnosis Discharge Diagnosis (1) Vaginal delivery: Status: Acute (2) URI (upper respiratory infection): Status: Acute Discharge Plan Disposition Patient Disposition: Home Condition: Good Discharge Details Reason For Visit: Induction for post dates Admit Date/Time: 02/09/24 06:51 Admit Provider: Amena Rust Attending Provider: Amena Rust Primary Care Provider: Amena Rust Hospital Course Hospital Course: Pt underwent induction of labor at term with pitocin and AROM. She received an epidural and underwent an uncomplicated vaginal delivery. Her course was also uncomplicated and she was ready for d/c home on PPD#2 Home Meds and New Rx's Prescriptions: No Action prenat.vits,martha,[id number] Tablet 1 tab PO DAILY Patient Comments: gummies, instructions say to take 2; as of 09/21/20 is no longer taking the gummies. famotidine 10 mg tablet 10 mg PO DAILY docusate sodium 100 mg capsule 100 mg PO DAILY PRN magnesium 200 mg tablet 400 mg PO DAILY ascorbic acid (vitamin C) 250 mg tablet,chewable 250 mg PO DAILY Discharge Instructions Stand Alone Forms: BC Instructions, BC Post Vaginal Deliver Activity:: nothing in the vagina x1m Equipment/Supplies:: No Equipment Needed Diet:: As Tolerated Discharge Orders Discharge Orders: Discharge Order (Routine); Ordered 02/11/24 Ordered By: Jenna Sawyer OB:DS Summary Summary Vaginal Delivery Method: Spontaneaous Laceration Extension: N/A Contraception Discussed Contraception Discussed: Yes Contraceptive Plan: Not planning to use, Infant Gender-Baby A: Female weight: 8 lb 8.687 oz Status at Discharge Functional status at discharge: independent ambulation Overall status at discharge: patient is back to baseline Mental Status: mental status grossly normal Speech and Movement: speech and movement normal Mood: congruent mood Affect: normal affect Quality:SDOH Health Related Social Needs: No Data to Display Exam Physical Exam Vital signs: Temp Pulse Resp BP Pulse Ox 98.4 F 69 18 112/66 98 02/10/24 22:00 02/10/24 22:00 02/10/24 22:00 02/10/24 22:00 02/10/24 08:00 Vital Signs Reviewed: Yes PFSH All Active Problems (Updated 02/10/24 @ 20:07 by Leah Trevino MD) URI (upper respiratory infection) (Acute) Vaginal delivery (Acute) Encounter for induction of labor (Acute) Itching (Acute) (Acute) Rh negative state in antepartum period (Acute) Medical History (Updated 02/10/24 @ 20:07 by Leah Trevino MD) Vaginal candidiasis Uterine prolapse without vaginal wall prolapse 06/2022. Stage 2 after 05/2022. Family History Father Well adult Mother Well adult Diabetes Maternal Grandfather Colon cancer Social History Smoking/Tobacco Use Status: Never Smoking risk assessment performed?: Yes Alcohol Intake: current Alcohol Intake frequency: a few times a month Alcohol type: wine Substance use type: does not use Household members: spouse and other Details: [employer]. Housing: house Number of Children: 0 Do you feel safe at home: Yes Do you feel safe in your relationship?: Yes Additional Social history: Pt plays organ, piano and clarinet. She and have known each other since childhood. Female Reproductive History Menstrual control method: other History History 3 Para 2 Hx # Term Pregnancies 2 Multiple births 0 Hx # Pregnancies 0 Ectopic pregnancies 0 AB induced 0 Hx Number of Living Children 2 AB spontaneous 0 Past Pregnancies Del. Date GA/Weeks # Preg Succ Route Wgt Sex Labor Lgth Anesth esia Location [facility] 12/23/20 41 No Yes vaginal 9 lb 1 oz [address] [facility] Dr[facility] Sawyer 06/07/22 40 No Yes vaginal 8 lb 2.9 oz Female [facility] hrs [facility] Delivery Date: 12/23/20 Last Updated by: Mary Brunson Post-date IOL, no meds for labor, nml , [place] Delivery Date: 06/07/22 Last Updated by: Mary Brunson IOL for being overdue, got epidural for OP head position, Charlene DS: Data Vitals/I&O Vitals and I&O: Vital Signs Temperature 98.4 F 02/10/24 22:00 Temperature 99.1 F 02/09/24 18:20 Temperature Source Oral 02/10/24 22:00 Pulse 69 02/10/24 22:00 Pulse 109 02/09/24 18:20 Pulse Rhythm Regular 02/10/24 22:00 Respiratory Rate 18 02/10/24 22:00 Respiratory Depth Normal 02/10/24 08:00 Blood Pressure 112/66 02/10/24 22:00 Blood Pressure 122/73 02/09/24 18:20 Blood Pressure Mean 81 02/10/24 22:00 Pulse Oximetry 98 02/10/24 08:00 Oxygen Delivery Method Room Air 02/09/24 08:59 Oxygen Flow Rate 0 02/09/24 08:59 Pain Level 10 02/09/24 18:33 Intake & Output 02/10/24 02/10/24 02/11/24 11:59 23:59 11:59 Intake Total 345 / 345 Output Total 550 / 550 Balance -205 / -205 Intake: IV 345 / 345 Output: Urine 550 / 550 Other: Urine Color Yellow Pale
[2024-02-11] MEDS: Docusate Sodium 100 MG CAP PO (08:40)
[2024-02-11 08:57] VITALS: BP 110/64; PULSE 78; RESP 20; TEMP 36.6; O2SAT 98
--- NOTE | 2024-02-11 13:23 | W.ANESPOSTOP ---
Postoperative Evaluation Date, Time and Location Date Performed: 02/11/24 Time Performed: 13:24 Patient Location: Other (Patient discharged home) Vital Signs Most Recent Imported Vital Signs: Most Recent Vital Signs Temp Pulse Resp BP Pulse Ox 36.6 C 78 20 110/64 98 02/11/24 08:57 02/11/24 08:57 02/11/24 08:57 02/11/24 08:57 02/11/24 08:57 Pain Score Most Recent Pain Score: Most Recent Pain Score Pain Level 02/09/24 18:33 Assessment Mental Status: Awake (Alert & Oriented to Patient Baseline) Airway and Respiratory Function: Patent airway with normal (patient baseline) respiratory exam Cardiovascular Function: Hemodynamically Stable Hydration Status: Adequately Hydrated Nausea & Vomiting: No Nausea or Vomiting Pain: Pain is tolerable per patient Peripheral Nerve Block: Patient did not receive a nerve block Postoperative Comments:: Per chart review. Patient discharged prior to Anesthesia post op.
== END 2024-02-11 10:20 | disposition home or self-care (01) | DRG 807 ==
PROVIDERS: Admitting Provider Obstetrics & Gynecology; PCP Obstetrics & Gynecology; Visit Provider Obstetrics & Gynecology
DX: O26.893 Other specified pregnancy related conditions, third trimester (principal); Z37.0 Single live birth; Z67.91 Unspecified blood type, Rh negative; O99.62 Diseases of the digestive system complicating childbirth; Z3A.40 40 weeks gestation of pregnancy; K59.00 Constipation, unspecified; O34.523 Maternal care for prolapse of gravid uterus, third trimester; O99.52 Diseases of the respiratory system complicating childbirth; J06.9 Acute upper respiratory infection, unspecified
CPT/HCPCS: 36415; 85027; 86850; 86900; 86901; 59025; 59200; 85025; G0378; J0665; J2590; J3010